=== PATIENT | male | born 1955 | race Caucasian/White ===

== ENCOUNTER → 2016-12-27 | Day surgery (SDC) | payer OTHER ==
[2016-11-23 10:54] VITALS: Ht 172.7 cm; Wt 68.2 kg
[~2016-12-27] VITALS: Ht 172.7 cm; Wt 68.2 kg
[~2016-12-27] MED LIST: 500ML BSS 0.3ML EPI 1:1000PF IRRIG ONE; ACETAMINOPHEN 325 MG TAB PO PRN; AMVISC PLUS 0.8ML SYRINGE INT OCU ONE; ATROPINE SULFATE 0.1 MG/ML 5ML SYR IV PRN; BSS FLUSH ONE; EpHEDrine SULFATE INJ 50 MG/ML AMP IV PRN; EpINEphrine INJ 1MG/ML AMP 1 MG/ML AMP ONE; IBUP-1428 PO; LIDOCAINE 3.5% OPH GEL PER APPLICATION CHARGE ONE; LIDOCAINE HCL 1% MPF 2 ML VIAL ONE; MIDAZOLAM HCL 1 MG/ML 2ML VIAL ONE; OCUCOAT 1 ML SOLN IO ONE; OMEP40CA41 PO; POVIDONE-IODINE OP SOLN 30 ML BTL ONE; PROPARACAINE 0.5% OP SOLN PER DROP CHARGE OPR SCH; TOBRAMYCIN/DEXAMETHASONE OPH OINT PER APPLN CHARGE ONE
[2016-12-27] MEDS: PHENYLEPHRINE HCL 2.5% OP SOLN PER DROP CHARGE OPR SCH ×2 (08:40→08:46)
[2016-12-27] MEDS: TROPICAMIDE 1% OP SOLN PER DROP CHARGE OPR SCH ×2 (08:42→08:47)
[2016-12-27] MEDS: CYCLOPENTOLATE HCL 1% OP SOLN PER DROP CHARGE OPR SCH ×2 (08:42→08:48)
[2016-12-27] MEDS: KETOROLAC 0.5% OP SOLN PER DROP CHARGE OPR SCH ×2 (08:44→08:50)
[2016-12-27] MEDS: GATIFLOXACIN OP SOLN PER DROP CHARGE OPR SCH ×2 (08:45→08:51)
--- NOTE | 2016-12-27 09:08 | History & Physical Bridge - SC ---
H&P Re-Evaluation Bridge Note: I have examined the patient, reviewed the History & Physical and in the interval since the performance of the History & Physical I have noted the following changes of clinical significance: Diagnosis: Right Cataract Procedure: Right Cataract Removal with Lens Implant No changes noted
--- NOTE | 2016-12-27 09:51 | [facility] Operative Report ---
Operative Report Date of Service Dec 27, 2016. Operative Report 1. PREOPERATIVE DIAGNOSIS: Cataract of the right eye. 2. POSTOPERATIVE DIAGNOSIS: Same. 3. PROCEDURE: Phacoemulsification with intraocular lens implantation of the right eye. SURGEON: Dr. Manuel Carreon. ANESTHESIA: Topical Lidocaine gel, 1% Non- Preserved intracameral Lidocaine, and monitored intravenous sedation. INDICATIONS FOR THE PROCEDURE: The patient is a 61 - year-old male with a history of cataract of the right eye causing significant visual impairment. The details of the proposed procedure were explained to the patient who asked appropriate questions and following discussion of all risks, benefits and alternatives agreed to have the procedure done. 4. OPERATION AND FINDINGS: DESCRIPTION OF PROCEDURE: After informed consent was obtained, the patient was brought to the Operating Room at the [facility]. The patient was placed in a supine position and then the right eye was prepped and draped in the usual sterile fashion for intraocular surgery. A drop of topical Lidocaine gel was placed in the operative eye. A wire lid speculum was then placed in the fornices. A corneal paracentesis was then created temporally. The Non-Preserved Lidocaine was then instilled into the anterior chamber. The anterior chamber was then pressurized with viscoelastic. A 2.0 mm clear corneal incision was then created temporally. A cystotome was inserted into the anterior chamber and used to create a tear in the anterior lens capsule. This capsular tear was then used to create a small flap and the flap was dragged in a counterclockwise direction in order to create a continuous curvilinear capsulorrhexis. Hydrodissection was accomplished with balanced salt solution. Phacoemulsification of the lens nucleus was then performed in a standard [id number]-[id number] technique. The phaco time was 19 seconds with an average power of 2 %. The remaining cortical material was removed using irrigation aspiration. The capsular bag was then filled with viscoelastic. A Bausch & Lomb MI60L +24.0 diopters lens was then loaded into the injector and injected into the capsular bag. The remaining viscoelastic was removed with the irrigation aspiration handpiece. The wound was hydrated and then checked and found to be watertight. The intraocular pressure was checked and found to be adequate. The wire lid speculum was removed and the patient's face was cleaned and dried. TobraDex ointment was placed in the inferior fornix. The patient was discharged to the Recovery Room having tolerated the procedure well. There were no complications. The patient will be seen tomorrow in the office for follow-up. I attest to the content of the Intraoperative Record and any orders documented therein. Any exceptions are noted below.
--- NOTE | 2016-12-27 09:51 | Discharge Instructions-SurgCtr ---
Discharge Instructions Date of Service Dec 27, 2016. Visit Reason for Visit: Right Cataract Discharge Discharge Diagnosis / Problem: cataract Discharge Goals Goal(s): Improve function Activity Recommendations Activity Limitations: per Instructions/Follow-up section Anesthesia . Post Anesthesia Instructions: If you have had General Anesthesia or IV Sedation: * Do not drive today. * Resume driving when surgeon permits. * Do not make important decisions or sign legal documents today. * Call surgeon for: 1. Temperature elevations greater than 101 degrees F. 2. Uncontrollable pain. 3. Excessive bleeding. 4. Persistent nausea and vomiting. 5. Medication intolerance (nausea, vomiting or rash). * For nausea and vomiting use only clear liquids such as: tea, soda, bouillon until nausea subsides, then gradually increase diet as tolerated. * If you have any concerns or questions, call your surgeon's office. If physician is unavailable and it is an emergency, call 911 or go to the nearest emergency room. . Instructions / Follow-Up Instructions / Follow-Up ACTIVITY RECOMMENDATIONS: * No strenuous lifting, jogging or running for 4 days * No swimming or yard work for 1 week. * Limited bending is permitted, such as putting on shoes. RETURN TO SCHOOL/WORK: No work until seen by physician in office. MEDICATIONS: Resume previous medications unless instructed otherwise by your surgeon. This includes eye drops for glaucoma. Zymaxid/Gatifloxacin (hay cap) - one drop every 2 hours until bedtime Nevanac/Ilevro/Prolensa/Ketorolac (dsouza cap) - one drop every 4 hours until bedtime Prednisolone/Durezol (white/pink cap, SHAKE WELL) - one drop every 2 hours until bedtime Starting tomorrow - all 3 drops every 4 hours until seen in the office Optive drops - as needed for discomfort SPECIAL CARE INSTRUCTIONS: * Wear eyeshield when sleeping, for four nights. * You may wear your own glasses or sunglasses while awake. * You may read or watch TV * You may shower and wash your face, but be gentle around the eye and pat dry. * Blurry vision and mild irritation are normal. * Call office if pain is more severe or vision becomes dark at . FOLLOW UP VISIT: Follow-up with Dr Carreon tomorrow. Diet Recommendations Home Diet: resume previous diet Procedures Procedures Performed: Right Cataract Phacoemulsification With Intraocular Lens Implant Pending Studies Studies pending at discharge: no Medical Emergencies . Who to Call and When: Medical Emergencies: If at any time you feel your situation is an emergency, please call 911 immediately. . Non-Emergent Contact Non-Emergency issues call your: Torch Straightener . . "Provider Documentation" section prepared by Manuel Carreon. .
[2016-12-27 09:56] VITALS: TEMP 36.3
--- NOTE | 2016-12-27 10:02 | Anesthesia Progress Nt - [facility] ---
Anesthesia Post Op Note Date & Time Dec 27, 2016 at 10:02 Vital Signs Pain Intensity: 0 Vital Signs Past 12 Hours Date Time Temp Pulse Resp B/P (MAP) Pulse Ox O2 Delivery O2 Flow Rate FiO2 12/27/16 09:56 36.3 58 18 123/78 (93) 95 Room Air 12/27/16 08:32 36.5 68 18 103/81 (88) 96 Room Air Notes Mental Status: alert / awake / arousable, participated in evaluation Pt Amnestic to Procedure: Yes Nausea / Vomiting: adequately controlled Pain: adequately controlled Airway Patency, RR, SpO2: stable & adequate BP & HR: stable & adequate Hydration State: stable & adequate Anesthetic Complications: no major complications apparent
[2016-12-27 10:18] VITALS: BP 134/80; PULSE 60; O2SAT 98
== END | disposition home or self-care (01) ==
LOC: X.SURG 08:20
PROVIDERS: ATTEND Ophthalmology
DX: H25.9 Unspecified age-related cataract (principal); K21.9 Gastro-esophageal reflux disease without esophagitis; N28.1 Cyst of kidney, acquired; L40.9 Psoriasis, unspecified; M51.36 Other intervertebral disc degeneration, lumbar region; F17.210 Nicotine dependence, cigarettes, uncomplicated; Z79.899 Other long term (current) drug therapy

== ENCOUNTER → 2017-01-22 | Day surgery (SDC) | payer OTHER ==
[2017-01-03 11:50] VITALS: Ht 172.7 cm; Wt 68.2 kg
[~2017-01-22] VITALS: Ht 172.7 cm; Wt 68.2 kg
[~2017-01-22] MED LIST changes: +ACETAMINOPHEN 325 MG TAB ONE; +LACTATED RINGER'S 1000ML 500 ML IV SCH; +ONDANSETRON INJ 2 MG/ML 2 ML VIAL IV PRN; +PROPARACAINE 0.5% OP SOLN PER DROP CHARGE OPL SCH; -PROPARACAINE 0.5% OP SOLN PER DROP CHARGE OPR SCH
[2017-01-22] MEDS: PHENYLEPHRINE HCL 2.5% OP SOLN PER DROP CHARGE OPL SCH ×2 (09:03→09:08)
[2017-01-22] MEDS: TROPICAMIDE 1% OP SOLN PER DROP CHARGE OPL SCH ×2 (09:04→09:09)
[2017-01-22] MEDS: CYCLOPENTOLATE HCL 1% OP SOLN PER DROP CHARGE OPL SCH ×2 (09:05→09:10)
[2017-01-22] MEDS: KETOROLAC 0.5% OP SOLN PER DROP CHARGE OPL SCH ×2 (09:06→09:11)
[2017-01-22] MEDS: GATIFLOXACIN OP SOLN PER DROP CHARGE OPL SCH ×2 (09:07→09:17)
--- NOTE | 2017-01-22 09:53 | History & Physical Bridge - SC ---
H&P Re-Evaluation Bridge Note: I have examined the patient, reviewed the History & Physical and in the interval since the performance of the History & Physical I have noted the following changes of clinical significance: Diagnosis: Left Cataract Procedure: Left Cataract Removal with Lens Implant No changes noted
--- NOTE | 2017-01-22 10:11 | History & Physical Bridge - SC ---
H&P Re-Evaluation Bridge Note: I have examined the patient, reviewed the History & Physical and in the interval since the performance of the History & Physical I have noted the following changes of clinical significance: No changes noted
--- NOTE | 2017-01-22 10:24 | Discharge Instructions-SurgCtr ---
Discharge Instructions Date of Service Jan 22, 2017. Visit Reason for Visit: Cataract Left Eye Discharge Discharge Diagnosis / Problem: cataract Discharge Goals Goal(s): Improve function Activity Recommendations Activity Limitations: per Instructions/Follow-up section Anesthesia . Post Anesthesia Instructions: If you have had General Anesthesia or IV Sedation: * Do not drive today. * Resume driving when surgeon permits. * Do not make important decisions or sign legal documents today. * Call surgeon for: 1. Temperature elevations greater than 101 degrees F. 2. Uncontrollable pain. 3. Excessive bleeding. 4. Persistent nausea and vomiting. 5. Medication intolerance (nausea, vomiting or rash). * For nausea and vomiting use only clear liquids such as: tea, soda, bouillon until nausea subsides, then gradually increase diet as tolerated. * If you have any concerns or questions, call your surgeon's office. If physician is unavailable and it is an emergency, call 911 or go to the nearest emergency room. . Diet Recommendations Home Diet: resume previous diet Procedures Procedures Performed: Left Cataract Phacoemulsification With Intraocular Lens Implant Pending Studies Studies pending at discharge: no Medical Emergencies . Who to Call and When: Medical Emergencies: If at any time you feel your situation is an emergency, please call 911 immediately. . Non-Emergent Contact Non-Emergency issues call your: Rehab/Pre Vocational Counselor . . "Provider Documentation" section prepared by Manuel Carreon. .
--- NOTE | 2017-01-22 10:24 | [facility] Operative Report ---
Operative Report Date of Service Jan 22, 2017. Operative Report 1. PREOPERATIVE DIAGNOSIS: Cataract of the left eye. 2. POSTOPERATIVE DIAGNOSIS: Same. 3. PROCEDURE: Phacoemulsification with intraocular lens implantation of the left eye. SURGEON: Dr. Manuel Carreon. ANESTHESIA: Topical Lidocaine gel, 1% Non- Preserved intracameral Lidocaine, and monitored intravenous sedation. INDICATIONS FOR THE PROCEDURE: The patient is a 61 - year-old male with a history of cataract of the left eye causing significant visual impairment. The details of the proposed procedure were explained to the patient who asked appropriate questions and following discussion of all risks, benefits and alternatives agreed to have the procedure done. 4. OPERATION AND FINDINGS: DESCRIPTION OF PROCEDURE: After informed consent was obtained, the patient was brought to the Operating Room at the [facility]. The patient was placed in a supine position and then the left eye was prepped and draped in the usual sterile fashion for intraocular surgery. A drop of topical Lidocaine gel was placed in the operative eye. A wire lid speculum was then placed in the fornices. A corneal paracentesis was then created temporally. The Non-Preserved Lidocaine was then instilled into the anterior chamber. The anterior chamber was then pressurized with viscoelastic. A 2.0 mm clear corneal incision was then created temporally. A cystotome was inserted into the anterior chamber and used to create a tear in the anterior lens capsule. This capsular tear was then used to create a small flap and the flap was dragged in a counterclockwise direction in order to create a continuous curvilinear capsulorrhexis. Hydrodissection was accomplished with balanced salt solution. Phacoemulsification of the lens nucleus was then performed in a standard [id number]-lli-fhrejsm technique. The phaco time was 16 seconds with an average power of 12 %. The remaining cortical material was removed using irrigation aspiration. The capsular bag was then filled with viscoelastic. A Bausch & Lomb MI60L +20.0 diopters lens was then loaded into the injector and injected into the capsular bag. The remaining viscoelastic was removed with the irrigation aspiration handpiece. The wound was hydrated and then checked and found to be watertight. The intraocular pressure was checked and found to be adequate. The wire lid speculum was removed and the patient's face was cleaned and dried. TobraDex ointment was placed in the inferior fornix. The patient was discharged to the Recovery Room having tolerated the procedure well. There were no complications. The patient will be seen tomorrow in the office for follow-up. I attest to the content of the Intraoperative Record and any orders documented therein. Any exceptions are noted below.
[2017-01-22 10:26] VITALS: TEMP 36.3
--- NOTE | 2017-01-22 10:55 | Anesthesia Progress Nt - [facility] ---
Anesthesia Post Op Note Date & Time Jan 22, 2017 at 10:54 Vital Signs Pain Intensity: 3 Vital Signs Past 12 Hours Date Time Temp Pulse Resp B/P (MAP) Pulse Ox O2 Delivery O2 Flow Rate FiO2 01/22/17 10:26 36.3 57 16 103/62 (76) 97 Room Air 01/22/17 08:56 36.4 60 18 116/72 (87) 96 Room Air Notes Mental Status: alert / awake / arousable, participated in evaluation Pt Amnestic to Procedure: Yes Nausea / Vomiting: adequately controlled Pain: adequately controlled Airway Patency, RR, SpO2: stable & adequate BP & HR: stable & adequate Hydration State: stable & adequate Anesthetic Complications: no major complications apparent
[2017-01-22 10:57] VITALS: BP 99/65; PULSE 61; O2SAT 97
== END | disposition home or self-care (01) ==
LOC: X.SURG 08:44
PROVIDERS: ATTEND Ophthalmology
DX: H26.9 Unspecified cataract (principal); F17.210 Nicotine dependence, cigarettes, uncomplicated; K21.9 Gastro-esophageal reflux disease without esophagitis; Z79.899 Other long term (current) drug therapy

== ENCOUNTER → 2017-07-05 | Outpatient (CLI) | payer OTHER ==
[~2017-07-05] MED LIST changes: -500ML BSS 0.3ML EPI 1:1000PF IRRIG ONE; -ACETAMINOPHEN 325 MG TAB ONE; -ACETAMINOPHEN 325 MG TAB PO PRN; -AMVISC PLUS 0.8ML SYRINGE INT OCU ONE; -ATROPINE SULFATE 0.1 MG/ML 5ML SYR IV PRN; -BSS FLUSH ONE; -EpHEDrine SULFATE INJ 50 MG/ML AMP IV PRN; -EpINEphrine INJ 1MG/ML AMP 1 MG/ML AMP ONE; -LACTATED RINGER'S 1000ML 500 ML IV SCH; -LIDOCAINE 3.5% OPH GEL PER APPLICATION CHARGE ONE; -LIDOCAINE HCL 1% MPF 2 ML VIAL ONE; -MIDAZOLAM HCL 1 MG/ML 2ML VIAL ONE; -OCUCOAT 1 ML SOLN IO ONE; -ONDANSETRON INJ 2 MG/ML 2 ML VIAL IV PRN; -POVIDONE-IODINE OP SOLN 30 ML BTL ONE; -PROPARACAINE 0.5% OP SOLN PER DROP CHARGE OPL SCH; -TOBRAMYCIN/DEXAMETHASONE OPH OINT PER APPLN CHARGE ONE; +TRAM-10 PO
--- NOTE | 2017-07-05 17:53 | DIAGNOSTIC IMAGING REPORT ---
LUMBAR SPINE W/O CONTRAST CLINICAL HISTORY: 61 years-old Male presenting with LUMBAR SPINE PAIN. TECHNIQUE: Multisequence, multiplanar MR imaging of the lumbar spine was performed without the use of intravenous contrast. IV contrast: None. COMPARISON: 11/10/2015. FINDINGS: Localizer images: Posterior lumbar fusion hardware at L4-5. Posterior bilateral transpedicular screw and leonie fixation of L4-5 with interbody spacer. Laminectomy defects at these levels. Regional susceptibility artifact somewhat limits evaluation. Adequate posterior decompression. No evidence of bony edema at the operative levels. Interval removal of the S1 transpedicular posterior fixation hardware. Interbody spacer also noted at L5-S1 with osseous fusion across these levels. Nonspecific T2 hyperintensity in the operative bed likely granulation tissue or mild edema. Normal lumbar lordosis. Nonoperative vertebral body levels demonstrate normal height, alignment, and bone marrow signal intensity. Diffuse intervertebral disc desiccation with slight height loss at L3-4. Additional multilevel degenerative changes further detailed below: L1-2: No significant spinal canal or neural foraminal narrowing. L2-3: Facet arthropathy results in mild bilateral neural foraminal narrowing. No significant spinal canal narrowing. Anterior osteophytosis also evident. L3-4: Disc bulge and prominent anterior osteophytosis. There may also be a focal disc extrusion with cranial migration effacing the superior aspect of the right lateral recess (series 11 image 14). This was not present on prior exam. In combination with more severe facet arthropathy, severe right and moderate left neural foraminal narrowing is evident. Mass effect on the exiting right L3 nerve root. These degenerative changes have significantly progressed since the prior exam. No significant spinal canal stenosis. L4-5: No spinal canal stenosis. No gross evidence of neural foraminal narrowing allowing for susceptibility artifact. L5-S1: No spinal canal stenosis. No gross evidence of neural foraminal narrowing allowing for susceptibility artifact. Spinal cord is in good position at the L1-2 level and cauda equina normal in morphology. Postsurgical changes of the paraspinal soft tissues as mentioned above. No focal fluid collection is evident. Exophytic T2 hypointense lesion arising from the left kidney is indeterminate but may represent a hemorrhagic cyst based markedly T2 hypointense rim on STIR (series 9 image 15). IMPRESSION: 1. Postsurgical changes of posterior L4-5 fusion with interbody spacer. 2. Interval removal of the S1 posterior fusion hardware though the interbody spacer at L5-S1 remains. Osseous fusion across L5-S1. 3. Significant interval development of adjacent level degenerative change at L3-4 with severe right and moderate left neural foraminal narrowing secondary to disc bulge and facet arthropathy. 4. Possible disc extrusion at the L3-4 level with cranial migration. This effaces the superior aspect of the right lateral recess without significant impact on the exiting right L3 nerve root as the right neural foramen is already severely narrowed. 5. No significant spinal canal stenosis. 6. Exophytic T2 hypointense lesion arising from the left kidney is indeterminate but may represent a hemorrhagic cyst. Electronically signed by: Kranthi Shine M.D. 07/05/2017 5:52 PM Dictated Date/Time: 07/05/2017 5:42 PM
== END | disposition home or self-care (01) ==
LOC: C.MRI 16:21
PROVIDERS: ATTEND Orthopaedic Surgery Orthopaedic Surgery of the Spine
DX: M47.816 Spondylosis without myelopathy or radiculopathy, lumbar region (principal); M51.26 Other intervertebral disc displacement, lumbar region; M46.96 Unspecified inflammatory spondylopathy, lumbar region; Z98.1 Arthrodesis status

== ENCOUNTER 2017-07-18 06:22 | Inpatient (IN) | payer OTHER ==
--- NOTE | 2017-07-10 11:57 | DIAGNOSTIC IMAGING REPORT ---
CHEST 2 VIEWS ROUTINE CLINICAL HISTORY: 61 years-old Male presenting with PREOP. TECHNIQUE: PA and lateral views of the chest were obtained. COMPARISON: 11/25/2015. FINDINGS: Atherosclerosis of the aortic arch. Cardiac silhouette normal in size. Lungs and pleural spaces clear. Osseous structures normal. Upper abdomen normal. IMPRESSION: 1. No acute cardiopulmonary disease. Electronically signed by: Kranthi Shine M.D. 07/10/2017 11:56 AM Dictated Date/Time: 07/10/2017 11:55 AM
[2017-07-10 12:33] LABS: BASO % 0.5 %; BASO ABS # 0.04 K/uL (0-0.2); EOS % 2.7 %; EOS ABS # 0.23 K/uL (0-0.5); HEMATOCRIT 39.6 % (42-52); HEMOGLOBIN 13.7 g/dL (14.0-18.0); IG# 0.01 K/uL (0.00-0.02); LYMPH % 42.3 %; LYMPH ABS # 3.54 K/uL (1.2-3.4); MEAN CELL VOLUME 91.9 fL (80-100); MEAN CORPUSCULAR HEMOGLOBIN 31.8 pg (25-34); MEAN CORPUSCULAR HGB CONC 34.6 g/dl (32-36); MEAN PLATELET VOLUME 9.5 fL (7.4-10.4); MONO % 10.8 %; NEUT % 43.6 %; NEUT ABS # 3.65 K/uL (1.4-6.5); PLATELET COUNT 248 K/uL (130-400); RED CELL DISTRIBUTION WIDTH CV 12.7 % (11.5-14.5); WHITE BLOOD COUNT 8.37 K/uL (4.8-10.8)
[2017-07-10 13:02] LABS: BLOOD UREA NITROGEN 19 mg/dl (7-18); CALCIUM 9.2 mg/dl (8.5-10.1); CARBON DIOXIDE 29 mmol/L (21-32); CREATININE 0.94 mg/dl (0.60-1.40); GLUCOSE 71 mg/dl (70-99); POTASSIUM 4.1 mmol/L (3.5-5.1); SODIUM 136 mmol/L (136-145)
[~2017-07-18] VITALS: Ht 175.3 cm; Wt 63.6 kg
[2017-07-18] VITALS (10 sets, daily range): BP systolic 109–145; BP diastolic 61–76; PULSE 57–74; TEMP 36.2–36.8; O2SAT 96–100; Ht 175.3 cm; Wt 63.6 kg
[~2017-07-18 06:22] MED LIST changes: +ACETAMINOPHEN 500 MG TAB PO SCH; +CEFAZOLIN 1000MG IV PUSH 7.5 ML IV SCH; +CYCLOPENTOLATE HCL 1% OP SOLN PER DROP CHARGE OPL SCH; +CeleBREX 200 MG CAP PO SCH; +GABAPENTIN 300 MG CAP PO SCH; +KETOROLAC 0.5% OP SOLN PER DROP CHARGE OPL SCH; +LACTATED RINGER'S 1000ML 1,000 ML IV SCH; +LACTATED RINGER'S 1000ML 500 ML IV SCH; +LIDOCAINE 4% OP SOLN DROP CHARGE OPL SCH; +MOXIFLOXACIN OPH SOLN PER DROP CHARGE OPL SCH; +PHENYLEPHRINE HCL 2.5% OP SOLN PER DROP CHARGE OPL SCH; +PROPARACAINE 0.5% OP SOLN PER DROP CHARGE OPL SCH; +TROPICAMIDE 1% OP SOLN PER DROP CHARGE OPL SCH
--- NOTE | 2017-07-18 07:18 | History and Physical ---
History & Physical Date Jul 18, 2017. Chief Complaint Back and leg pain History of Present Illness The patient is a 61 year old male with complaints of back and leg pain Past Medical/Surgical History Medical Problems: (1) Gastric ulcer (2) Laminectomy (3) Lumbar stenosis with neurogenic claudication Additional History Hepatic Disease: No Endocrine Disorder: No Kidney Disease: No Hypertension: No Heart Disease: No Bleeding Tendencies: No Infectious Diseases: No Allergies Coded Allergies: No Known Allergies (Verified , 07/12/17) Home Medications Scheduled Omeprazole (Prilosec), 40 MG PO QAM Scheduled PRN Ibuprofen (Motrin), 800 MG PO DIRECTED PRN for Pain Tramadol (Ultram), 50 MG PO TID PRN for Pain Physical Examination Skin: warm/dry, no rash Eyes: normal inspection, EOMI, sclerae normal ENT: normal ENT inspection, pharynx normal Head: normocephalic, atraumatic Neck: supple, no adenopathy, trachea midline Respiratory/Chest: lungs clear, normal breath sounds, no respiratory distress Cardiovascular: regular rate, rhythm, no edema, no murmur Abdomen / GI: normal bowel sounds, non tender Back: normal inspection Extremities: normal inspection, normal range of motion Neurologic/Psych: no motor/sensory deficits, alert, normal reflexes, oriented x 3 Diagnosis Lumbar spinal stenosis Plan of Treatment Removal of hardware L4-5, decompression and fusion L3-4
[2017-07-18] MEDS ORDERED: MIDAZOLAM HCL 1 MG/ML 2ML VIAL ONE (07:38)
[2017-07-18] MEDS ORDERED: FENTANYL CITRATE INJ 50 MCG/1 ML 2 ML VIAL ONE ×3 (07:38→08:32)
[2017-07-18] MEDS ORDERED: BUPIVACAINE/EPINEPHRINE 0.5% MPF 1:200,000 30 ML VIAL ONE (07:51)
[2017-07-18] MEDS ORDERED: BACITRACIN 50000 UNIT VIAL ONE (07:51)
[2017-07-18] MEDS ORDERED: FENTANYL CITRATE INJ 50 MCG/1 ML 2 ML VIAL IV PRN (08:30)
[2017-07-18] MEDS ORDERED: ONDANSETRON INJ 2 MG/ML 2 ML VIAL IV PRN ×2 (08:30→10:15)
[2017-07-18] MEDS ORDERED: EpHEDrine SULFATE INJ 50 MG/ML AMP IV PRN (08:30)
[2017-07-18] MEDS ORDERED: MoRPHine SULFATE 10 MG/ML CARP/VIAL IV PRN (08:30)
[2017-07-18] MEDS ORDERED: ATROPINE SULFATE 0.1 MG/ML 5ML SYR IV PRN (08:30)
[2017-07-18] MEDS ORDERED: HYDROmorphone INJ 2 MG/ML SYR/VIAL ONE ×2 (08:33→10:05)
[2017-07-18] MEDS ORDERED: LIDOCAINE HCL 2% 2 ML VIAL (20MG/ML) ONE (09:04)
[2017-07-18] MEDS ORDERED: DEXAMETHASONE SOD INJ 4 MG/ML VIAL ONE (09:04)
[2017-07-18] MEDS ORDERED: EpHEDrine SULFATE 50MG/5ML SYR ONE ×2 (09:04→10:07)
[2017-07-18] MEDS ORDERED: PROPOFOL IV EMULSION 10 MG/ML 20 ML VIAL IV ONE (09:04)
[2017-07-18] MEDS ORDERED: ESMOLOL HCL 10 MG/ML 10 ML VIAL ONE ×2 (09:04→10:09)
[2017-07-18] MEDS ORDERED: FLOSEAL HEMOSTATIC MATRIX 10ML TOP ONE (09:54)
[2017-07-18] MEDS ORDERED: SODIUM CHLORIDE 0.9% 1000ML 1,000 ML IV SCH (10:02)
--- NOTE | 2017-07-18 10:02 | [facility] Operative Report ---
Operative Report Operative Date Jul 18, 2017. Pre-Operative Diagnosis Lumbar spinal stenosis Post-Operative Diagnosis Same Procedure(s) Performed 1. Removal of posterior instrumentation L4-5. #2 exploration of fusion L4-5. #3 decompression medial facetectomies foraminotomies L2-3 L3-4. #4 posterior spinal fusion L3-4. #5 placement of posterior instrumentation L3-4. #6 interbody fusion L3-4. #7 placement peek cage 12 x 22 mm L3-4. #8 placement of locally harvested morselized' autograft t in the posterior lateral gutters. #9 placement of infuse collagen sponge combined with master graft in the posterior lateral gutters and ostium bone graft in the interbody space. Surgeon Dr. Blue [place] [employer]rier Surgeon(s) Emma Clark PA-C Estimated Blood Loss 200 Findings Severe spinal stenosis with herniated nucleus pulposus Description of Procedure Patient was met with preoperatively case discussed all questions addressed. After informed consent obtained patient was taken to the operative suite underwent intubation and placed in a prone position on the Kevin table on top of the Timothy frame. All bony prominences were well-padded eyes inspected to ensure no external pressure placed upon them. This point the lumbar spine was prepped and draped in normal sterile fashion. Sharp dissection with the assistance of Bovie cautery was performed down to and exposing the lamina and transverse processes of L3 and instrumentation at L4-5 bilaterally. And then proceeded with the hardware bilaterally at 4 5. Explore the fusion mass noting it to be intact. Then performed complete laminectomy of L3 partial laminectomy of L2 addressing severe lateral recess and foraminal stenosis. As well as a massive foraminal disc herniation on the right. After this was decompressed pedicle screws were placed in L3 and L4 bilaterally with the assistance of fluoroscopy in a properly sized leonie placed. Through a transforaminal approach on the right complete discectomy of L3-4 was performed endplates created to subcortical bleeding bone and a 12 x 22 mm peek cage for the ostium bone graft tapped in position. The rods were then compressed locked into final position bilaterally. The transverse processes of L3 and L4 burred to subcortical bleeding bone. Infuse collagen sponge master graft and locally harvested Gloria' s Artegraft was placed in the posterior lateral gutters. A 15 round RANDI drain inserted. Incision was then closed with 1 Vicryl fascia 2-0 Vicryl subcutaneous 3 4-0 Monocryl for fast closure Steri-Strips sterile dressings placed. Patient will continue to PACU stable condition. Please note Emma Gardner was present throughout the entire procedure involved in patient positioning complex portions of the surgery and fashion closure. I attest to the content of the Intraoperative Record and any orders documented therein. Any exceptions are noted below.
[2017-07-18] MEDS ORDERED: ONDANSETRON INJ 2 MG/ML 2 ML VIAL ONE (10:06)
[2017-07-18] MEDS ORDERED: NEOSTIGMINE METHYLSULFATE 1 MG/ML 10ML VIAL ONE (10:06)
[2017-07-18] MEDS ORDERED: GLYCOPYRROLATE INJ 0.2 MG/ML VIAL ONE (10:06)
[2017-07-18] MEDS ORDERED: KETOROLAC TROMETHAMINE 30 MG/ML VIAL ONE (10:07)
[2017-07-18] MEDS ORDERED: ROCURONIUM BROMIDE 10 MG/ML 5 ML VIAL IV ONE (10:09)
--- NOTE | 2017-07-18 10:13 | DIAGNOSTIC IMAGING REPORT ---
LUMBAR SPINE, INTRAOPERATIVE FLUOROSCOPY HISTORY: L4-L5 hardware removal. L3-L4 decompression and fusion.. FLUOROSCOPY TIME: 7 seconds.. FINDINGS: Intraoperative fluoroscopy was provided for the lumbar spine. 3 fluoroscopic spot images were obtained. Interval removal of the L4-L5 pedicle screws and rods. Interval posterior decompression fusion at L3-L4 with pedicle screws and rods. The hardware appears intact. Disc spacers at L3-L4, L4-L5, and L5-S1 are noted. IMPRESSION: Fluoroscopy provided for a posterior decompression and fusion at L3-L4. Electronically signed by: Omid Banuelos M.D. 07/18/2017 10:12 AM Dictated Date/Time: 07/18/2017 10:11 AM
[2017-07-18] MEDS ORDERED: PROMETHAZINE HCL INJ 12.5 MG in SODIUM CHLORIDE 0.9% 50ML 50 ML IV PRN (10:15)
[2017-07-18] MEDS ORDERED: NALOXONE HCL 0.4 MG/1 ML VIAL/CARP IV PRN ×2 (10:15)
[2017-07-18] MEDS ORDERED: DO NOT ADMINISTER FLU VACCINE PRN (10:15)
[2017-07-18] MEDS ORDERED: ACETAMINOPHEN 500 MG TAB PO PRN (10:15)
[2017-07-18] MEDS ORDERED: SOD PHOSPHATE/SOD BIPHOSPHATE ENEMA 132 ML BTL PR PRN (10:15)
[2017-07-18] MEDS ORDERED: hydrOXYzine HCL 25 MG TAB PO PRN (10:15)
[2017-07-18] MEDS ORDERED: BISACODYL 10 MG SUPP PR PRN (10:15)
[2017-07-18] MEDS ORDERED: LORAZEPAM INJ 0.5 MG in SYRINGE 0 ML IV PRN (10:15)
[2017-07-18] MEDS ORDERED: DO NOT ADMINISTER PNEUMOCOCCAL VACCINE PRN (10:15)
[2017-07-18] MEDS ORDERED: FAMOTIDINE 20 MG TAB PO PRN (10:15)
[2017-07-18] MEDS ORDERED: MAGNESIUM HYDROXIDE SUSP 30 ML UDC PO PRN (10:15)
[2017-07-18] MEDS ORDERED: ALUMINUM/MAGNESIUM SUSP 30 ML UDC PO PRN (10:15)
[2017-07-18] MEDS ORDERED: ACETAMINOPHEN IV 100 ML IV PRN (10:15)
[2017-07-18] MEDS ORDERED: METOCLOPRAMIDE HCL INJ 5 MG/ML 2 ML VIAL IV PRN (10:15)
[2017-07-18] MEDS ORDERED: LORAZEPAM 0.5 MG TAB PO PRN (10:15)
[2017-07-18] MEDS ORDERED: HYDROmorphone HCL 0.5MG/ML 50 ML CASSETTE ONE (10:21)
--- NOTE | 2017-07-18 11:15 | Anesthesiology Progress Note ---
Anesthesia Post Op Note Date & Time Jul 18, 2017 at 11:15 Vital Signs Pain Intensity: 4 Vital Signs Past 12 Hours Date Time Temp Pulse Resp B/P (MAP) Pulse Ox O2 Delivery O2 Flow Rate FiO2 07/18/17 11:05 36.3 57 18 119/66 100 Nasal Cannula 4 07/18/17 10:55 36.3 63 18 131/74 100 Nasal Cannula 4 07/18/17 10:45 60 16 122/69 100 Nasal Cannula 4 07/18/17 10:35 72 18 122/71 100 Oxymask 10 07/18/17 10:25 36.3 70 16 124/74 100 Oxymask 10 07/18/17 10:19 36.3 67 16 129/76 99 Oxymask 10 07/18/17 07:10 36.8 67 18 123/71 96 Room Air Notes Mental Status: alert / awake / arousable, participated in evaluation Pt Amnestic to Procedure: Yes Nausea / Vomiting: adequately controlled Pain: adequately controlled Airway Patency, RR, SpO2: stable & adequate BP & HR: stable & adequate Hydration State: stable & adequate Anesthetic Complications: no major complications apparent
[2017-07-18] MEDS ORDERED: RXC5 PO (15:26)
[2017-07-18] MEDS: HYDROmorphone HCL 0.5MG/ML 50 ML CASSETTE IV PRN ×2 (15:27→18:55)
--- NOTE | 2017-07-18 15:27 | Discharge Instructions ---
Discharge Instructions Date of Service Jul 18, 2017. Admission Reason for Admission: Lumbar Spinal Stenosis Discharge Discharge Diagnosis / Problem: lumbar stenosis Discharge Goals Goal(s): Improve function Activity Recommendations Activity Limitations: per Instructions/Follow-up section . Instructions / Follow-Up Instructions / Follow-Up ACTIVITY RECOMMENDATIONS: SELF CARE INSTRUCTIONS AFTER THORACIC/LUMBAR FUSIONS 1. You may walk to your tolerance. It is good exercise for your legs and back. Expect some back and intermittent leg aches and pains. 2. You may perform "counter-top" level activities (make a sandwich, rodolfo with a project, etc.). 3. No bending or lifting of more than 10 pounds or back twisting of any nature (roll like a log when turning in bed). 4. You may ride in a car for 20-30 minutes at a time. No driving until after your first visit with your doctor. 5. Frequent changes of position and restricting sitting to 30 minutes at a time will help limit the amount of back spasms and stiffness you may experience. 6. You may discontinue the use of ambulatory aids (cane, crutches, etc.) once your strength and confidence allow. 7. You may superintendent [employer] the shower and let water strike your incision when you arrive home at least once daily. Do not take a tub bath, sit in a hot tub or go into a swimming pool until after your first recheck in the office. SPECIAL CARE INSTRUCTIONS: VERY IMPORTANT TO READ AND REVIEW A. Your surgical incision has been closed with a cosmetic suture under the skin that will dissolve in about 6 weeks. In 14 days, you can use a pair of clean scissors and cut the suture that is left outside of the skin at the ends of your incision. 1. The small skin tapes can be removed 7 days after surgery if they have not fallen off by that point. 2. You may keep the wound open to air as much as possible to promote healing after post-op day number 5 unless told otherwise by your doctor. 3. If you think the wound looks like it is becoming infected (redness or worsening drainage) and/or you are experiencing fever, chill or worsening back pain and muscle spasms, contact the office so that we may evaluate you as soon as possible. B. Complications are uncommon, but please contact us if you have any signs or symptoms of: 1. wound infection (fever higher than 102.5 degrees F, redness, separation of wound, drainage, or increasing pain from the incision) 2. blood clots in legs (pain, swelling, redness and warmth in legs) 3. urinary tract infection (fever higher than 102.5 degrees F, burning upon urination or increased frequency of urination) 4. nerve problems (inability to walk on your toes or heels, numbness, loss of bowel or bladder control) 5. any other symptoms that concern you C. Please call the office at if you have any concerns or questions about your operation or recovery. D. No smoking! Smoking drastically decreases the chance of a solid fusion. E. Do not take any anti-inflammatory medications (Indocin, Advil, Motrin, Aspirin, Naprosyn, etc.) as these may inhibit the chance of a solid fusion. Tylenol is okay to take for pain. MANAGING PAIN AFTER SPINAL SURGERY 1. Narcotic medication is intended for short-term use and will be provided for surgical pain. Surgical pain usually lasts for a period of 4-6 weeks. Narcotic medication includes Percocet, Vicodin, Darvocet, Tylenol #3 or Lortab. 2. Longer-term pain is more appropriately treated with non-narcotic medication such as Tylenol ES. 3. Muscle spasm is not appropriately treated with narcotics. Muscle relaxers such as Soma, Flexeril or Skelaxin can be used along with Tylenol ES. 4. Remember that we all live with some "aches and pains". This is not unusual or uncommon after an injury or as we get older. a. Back pain is expected and may include muscle spasms for 4 to 6 weeks after surgery. The pain should gradually improve. If the pain worsens for no apparent reason, please contact the office. b. Intermittent leg pain may also be experienced and should not be concerned about unless it worsens for no apparent reason. If so, please contact the office. 5. We will provide appropriate medication within the normal guidelines of their prescribed use. We will also be very cautious and aware of potential abuse and extended duration of patients' medication needs. a. Pain medications are for your comfort and to assist with sleep and rest so that the tissue can heal. They are not provided in order to return to normal activity and should not be used through the day. To do so or worsening pain at night can result from ongoing tissue damage and development of tolerance to the prescribed medicine. 6. Please allow 2-3 days to process refills. Prescriptions will not be mailed but must be picked up at the office. FOLLOW UP VISIT: Keep your scheduled follow-up appointment. Any questions, please call the office at . Current Hospital Diet Patient's current hospital diet: Regular Diet Discharge Diet Recommended Diet: Regular Diet Procedures Procedures Performed: 1. Removal of posterior instrumentation L4-5. #2 exploration of fusion L4-5. #3 decompression medial facetectomies foraminotomies L2-3 L3-4. #4 posterior spinal fusion L3-4. #5 placement of posterior instrumentation L3-4. #6 interbody fusion L3-4. #7 placement peek cage 12 x 22 mm L3-4. #8 placement of locally harvested morselized' autograft t in the posterior lateral gutters. #9 placement of infuse collagen sponge combined with master graft in the posterior lateral gutters and ostium bone graft in the interbody space. Pending Studies Studies pending at discharge: no Medical Emergencies . Who to Call and When: Medical Emergencies: If at any time you feel your situation is an emergency, please call 911 immediately. . Non-Emergent Contact Non-Emergency issues call your: Primary Care Provider . "Provider Documentation" section prepared by Javed Blue. .
[2017-07-18] MEDS: SODIUM CHLORIDE 0.9% 1000ML 1,000 ML IV SCH ×2 (15:28→20:37)
[2017-07-18] MEDS: CEFAZOLIN IV 1,000 MG in SYRINGE 0 ML IV SCH ×2 (15:59→23:09)
[2017-07-18] MEDS ORDERED: CEFAZOLIN IV 1,000 MG in DEXTROSE 5% 50ML 50 ML IV SCH (16:00)
[2017-07-18] MEDS ORDERED: NURSING VERBAL MED ORDER ONE (18:45)
[2017-07-18] MEDS ORDERED: NICOTINE 21 MG/24 HR TDSY EXT ONE (19:15)
[2017-07-18] MEDS: DOCUSATE SODIUM/SENNA 50/8.6MG TAB PO SCH (20:37)
[2017-07-19] MEDS: SODIUM CHLORIDE 0.9% 1000ML 1,000 ML IV SCH (03:13)
[2017-07-19 03:59] VITALS: BP 108/66; PULSE 69; TEMP 36.5; O2SAT 97
[2017-07-19] MEDS ORDERED: NURSING DECISION MEDICATION ORDER SCH (05:30)
[2017-07-19] MEDS ORDERED: HYDROmorphone INJ 2 MG/ML SYR/VIAL IV PRN ×2 (06:00)
[2017-07-19] MEDS ORDERED: TRAMADOL HCL 50 MG TAB PO PRN (06:00)
[2017-07-19] MEDS ORDERED: DC PCA SCH (06:00)
[2017-07-19] MEDS ORDERED: HYDROmorphone INJ 0.5 MG/0.5 ML SYR IV PRN (06:00)
[2017-07-19 06:29] LABS: BASO % 0.1 %; BASO ABS # 0.01 K/uL (0-0.2); EOS % 0.2 %; EOS ABS # 0.03 K/uL (0-0.5); HEMATOCRIT 30.4 % (42-52); HEMOGLOBIN 10.5 g/dL (14.0-18.0); IG# 0.04 K/uL (0.00-0.02); LYMPH % 18.4 %; LYMPH ABS # 2.59 K/uL (1.2-3.4); MEAN CORPUSCULAR HEMOGLOBIN 32.1 pg (25-34); MEAN CORPUSCULAR HGB CONC 34.5 g/dl (32-36); MONO % 9.8 %; MONO ABS # 1.38 K/uL (0.11-0.59); NEUT % 71.2 %; NEUT ABS # 10.01 K/uL (1.4-6.5); PLATELET COUNT 204 K/uL (130-400); RED CELL DISTRIBUTION WIDTH CV 13.1 % (11.5-14.5); RED CELL DISTRIBUTION WIDTH SD 44.5 fL (36.4-46.3); WHITE BLOOD COUNT 14.06 K/uL (4.8-10.8)
[2017-07-19 07:04] LABS: CALCIUM 8.2 mg/dl (8.5-10.1); CREATININE 1.04 mg/dl (0.60-1.40)
[2017-07-19 07:20] VITALS: O2SAT 99
[2017-07-19 07:25] VITALS: BP 112/64; PULSE 72; TEMP 36.7; O2SAT 99
--- NOTE | 2017-07-19 08:12 | Anesthesiology Progress Note ---
Anesthesia Post Op Note Date & Time Jul 19, 2017 at 08:12 Vital Signs Pain Intensity: 2.0 Vital Signs Past 12 Hours Date Time Temp Pulse Resp B/P (MAP) Pulse Ox O2 Delivery O2 Flow Rate FiO2 07/19/17 07:25 36.7 72 16 112/64 (80) 99 Room Air 07/19/17 03:59 36.5 69 16 108/66 (80) 97 Room Air 07/18/17 23:30 36.4 64 16 120/70 (87) 96 Room Air Notes Mental Status: alert / awake / arousable, participated in evaluation Pt Amnestic to Procedure: Yes Nausea / Vomiting: adequately controlled Pain: adequately controlled Airway Patency, RR, SpO2: stable & adequate BP & HR: stable & adequate Hydration State: stable & adequate Anesthetic Complications: no major complications apparent
[2017-07-19] MEDS: NICOTINE 21 MG/24 HR TDSY EXT SCH (08:43)
[2017-07-19] MEDS: PANTOprazole SOD 40 MG TAB PO SCH (08:43)
[2017-07-19] MEDS ORDERED: KETOROLAC TROMETHAMINE 30 MG/ML VIAL IV PRN (10:30)
[2017-07-19] MEDS: OXYCODONE HCL IR 5 MG TAB (IMMEDIATE RELEASE) PO PRN ×2 (11:35→19:38)
[2017-07-19 12:15] VITALS: BP 109/62; PULSE 73; TEMP 36.3; O2SAT 97
--- NOTE | 2017-07-19 13:19 | Progress Note ---
Progress Note Date of Service Jul 19, 2017. Progress Note Patient's leg symptoms are markedly improved. Back pain is controlled. Vital signs are stable. On exam he is in a chair at the bedside has good strength testing appears comfortable. Assessment status post lumbar decompression fusion per plan at this time will continue physical therapy anticipate discharge home this weekend.
[2017-07-19 15:01] VITALS: BP 104/56; PULSE 88; TEMP 36.5; O2SAT 96
[2017-07-19] MEDS: DOCUSATE SODIUM/SENNA 50/8.6MG TAB PO SCH (20:54)
[2017-07-19 23:08] VITALS: BP 104/64; PULSE 75; TEMP 36.6; O2SAT 95
[2017-07-20] MEDS: OXYCODONE HCL IR 5 MG TAB (IMMEDIATE RELEASE) PO PRN (01:59)
[2017-07-20] MEDS ORDERED: POLYETHYLENE (MIRALAX) 17 GM PACK PO SCH (06:00)
[2017-07-20 07:20] VITALS: BP 113/69; PULSE 76; TEMP 36.5; O2SAT 94
[2017-07-20] MEDS: NICOTINE 21 MG/24 HR TDSY EXT SCH (08:53)
[2017-07-20] MEDS: PANTOprazole SOD 40 MG TAB PO SCH (08:54)
[2017-07-20 10:18] VITALS: BP 113/69; PULSE 76; TEMP 36.5; O2SAT 94
--- NOTE | 2017-07-20 10:23 | Discharge Summary ---
Orthopedic Discharge Summary Admission Date/Reason Jul 18, 2017 at 07:55 Lumbar Spinal Stenosis. Discharge Date/Disposition Jul 20, 2017 Home Diagnosis Principal Diagnosis: Lumbar spinal stenosis Admission Physical Exam As per Admitting History & Physical. Hospital Course Patient underwent lumbar decompression fusion tolerated as well as taken to the orthopedic floor possibly. Postop day #1 he was up and amatory progressed the postop day #2. Leg symptoms markedly improved. Back pain controlled. Subsequently discharged home. Discharge orders and instructions found in the chart for further review. Discharge Instructions Please refer to the electronic Patient Visit Report (Discharge Instructions) for additional information.
== END 2017-07-20 12:22 | disposition home or self-care (01) | DRG 455 ==
LOC: C.ACU 06:22 → C.3E 07:55 → ENRESERV 10:42
PROVIDERS: ADMIT Orthopaedic Surgery Orthopaedic Surgery of the Spine; ATTEND Orthopaedic Surgery Orthopaedic Surgery of the Spine
PROC: 0SG00AJ Fusion of Lumbar Vertebral Joint with Interbody Fusion Device, Posterior Approach, Anterior Column, Open Approach (ICD-10-PCS; principal; 2017-07-18 08:15)
PROC: 0SP004Z Removal of Internal Fixation Device from Lumbar Vertebral Joint, Open Approach (ICD-10-PCS; principal; 2017-07-18 08:15)
PROC: 0ST20ZZ Resection of Lumbar Vertebral Disc, Open Approach (ICD-10-PCS; principal; 2017-07-18 08:15)
PROC: 0SG0071 Fusion of Lumbar Vertebral Joint with Autologous Tissue Substitute, Posterior Approach, Posterior Column, Open Approach (ICD-10-PCS; principal; 2017-07-18 08:15)
DX: M48.061 Spinal stenosis, lumbar region without neurogenic claudication (principal); M51.26 Other intervertebral disc displacement, lumbar region; Z79.899 Other long term (current) drug therapy

== ENCOUNTER 2017-08-20 13:21 | Emergency (ER) | payer OTHER ==
[~2017-08-20] VITALS: Ht 175.3 cm; Wt 70.9 kg
[~2017-08-20 13:21] MED LIST changes: -ACETAMINOPHEN 500 MG TAB PO SCH; -CEFAZOLIN 1000MG IV PUSH 7.5 ML IV SCH; -CYCLOPENTOLATE HCL 1% OP SOLN PER DROP CHARGE OPL SCH; -CeleBREX 200 MG CAP PO SCH; -GABAPENTIN 300 MG CAP PO SCH; -IBUP-1428 PO; -KETOROLAC 0.5% OP SOLN PER DROP CHARGE OPL SCH; -LACTATED RINGER'S 1000ML 1,000 ML IV SCH; -LACTATED RINGER'S 1000ML 500 ML IV SCH; -LIDOCAINE 4% OP SOLN DROP CHARGE OPL SCH; -MOXIFLOXACIN OPH SOLN PER DROP CHARGE OPL SCH; -PHENYLEPHRINE HCL 2.5% OP SOLN PER DROP CHARGE OPL SCH; -PROPARACAINE 0.5% OP SOLN PER DROP CHARGE OPL SCH; +RXC5 PO; -TROPICAMIDE 1% OP SOLN PER DROP CHARGE OPL SCH
[2017-08-20 13:28] VITALS: TEMP 36.8; Ht 175.3 cm; Wt 70.9 kg
[2017-08-20] MEDS ORDERED: DOXY-300 PO (13:46)
--- NOTE | 2017-08-20 13:47 | EMERGENCY ROOM VISIT NOTE ---
History First contact with patient: 13:30 Chief Complaint: BITE Stated Complaint: TICK IN SIDE History of Present Illness The patient is a 61 year old male who presents to the Emergency Room via private vehicle with complaints of "tick inside". The patient states that he noticed a tick in the left flank region just a few hours prior to arrival here today. He is unsure how long it was in place and notes that it was quite engorged. He states that his attempted to remove this but it kept breaking off. There is still some retained pieces he notes. Tetanus is up-to- date. Review of Systems A complete 6-point Review of Systems was discussed with the patient, with pertinent positives and negatives listed in the History of Present Illness. All remaining Review of Systems questions can be considered negative unless otherwise specified. Past Medical/Surgical History Medical Problems: (1) Gastric ulcer (2) Laminectomy (3) Lumbar stenosis with neurogenic claudication Social History Smoking Status: Current Every Day Smoker Alcohol Use: occasionally Marital Status: single Occupation Status: unemployed Current/Historical Medications Scheduled Doxycycline (Monohydrate) (Doxycycline), 100 MG PO BID Omeprazole (Prilosec), 40 MG PO QAM Scheduled PRN Oxycodone HCl (Oxycodone HCl), 5-10 MG PO Q4H PRN for Moderate - severe pain Tramadol (Ultram), 50 MG PO TID PRN for Pain Physical Exam Vital Signs Date Time Temp Pulse Resp B/P (MAP) Pulse Ox O2 Delivery O2 Flow Rate FiO2 08/20/17 13:59 71 18 132/83 97 08/20/17 13:28 36.8 71 18 132/83 97 Room Air Physical Exam VITAL SIGNS - Vital signs and nursing notes were reviewed. Stable. GENERAL -61-year-old male appearing his stated age who is in no acute distress. Communicates well with provider and answers questions appropriately. SKIN -on the patient's left flank there is evidence of retained tick that is not moving, as well as a subcentimeter dark erythematous chenega surrounded by a larger >1 cm erythematous region. Medical Decision & Procedures Medical Decision Patient was seen and evaluated as above in room D2. Review was performed of nursing notes and vital signs. After obtaining a thorough history and physical examination it was evident the patient was experiencing retained pieces of a tick. After obtaining consent this was easily removed with a small 18-gauge needle and forceps. No integument was disrupted. It was cleansed with an alcohol prep pad and dressed with a bacitracin dressing. Secondary to not knowing how long this was in place, as well as the amount of erythema around the region which could either be from ambulation prior to arrival or the tick itself I will treat with doxycycline 21 days over concern he is developing erythema migrans. He is to follow with the family doctor. He is to return with worsening. He was also seen by the attending physician. The patient was educated upon management, had questions answered prior to discharge, and was discharged home in good condition. Case was discussed with the attending physician. I attest that I have personally reviewed the patient medication list. I attest that I have reviewed the patient's blood pressure and it was found to be slightly elevated likely secondary to situation. In the evaluation and treatment of this patient the following differential diagnoses were entertained: Erythema migrans, tick bite, cellulitis, among others. Impression Primary Impression: Tick bite Departure Information Dispostion Home / Self-Care Condition GOOD Prescriptions Doxycycline (Monohydrate) (Doxycycline) 100 Mg Cap 100 MG PO BID for 21 Days, #42 TABS Prov: Manuel Chappell PA-C 08/20/17 Referrals No Doctor, Assigned (PCP) Patient Instructions Bites Tick, ED Facts Tick, My [facility] Additional Instructions You were seen in the emergency department for a tick bite. Because of the surrounding area of redness I will treat this with doxycycline in the event that you could have acquired Lyme disease. You have been prescribed Doxycycline to be taken as prescribed. This is an antibiotic. All antibiotics have the potential to cause diarrhea. Stop this medication and contact a medical provider if you were to develop any significant adverse side effects including: wheezing, shortness of breath, passing out, vomiting, or a diffuse rash. Always take antibiotics as directed and COMPLETE the ENTIRE course regardless of the improvement of your symptoms. Protect yourself with sunscreen while on this antibiotic as it increases your skin's sensitivity to the light and cause bad sunburns. In addition, you should be sure to take this pill after eating. Make sure the pill is completely swallowed as this medication can cause irritation to the lining of the esophagus. Do NOT drink milk or eat anything with large amounts of Calcium in them 1 hour prior to taking this medication as this will decrease the effectiveness of the medication. This is 1 tablet every 12 hours for 21 days. Please call your family doctor to schedule follow-up as they may want to test for Lyme disease in the future. Please return with any new/concerning symptoms.
[2017-08-20 13:59] VITALS: BP 132/83; PULSE 71; O2SAT 97
--- NOTE | 2017-08-20 14:11 | EMERGENCY ROOM VISIT NOTE ---
ED Visit Note First contact with patient: 13:30 This Patient was discussed with the physician physician's assistant, Manuel Chappell PA-C. The pertinent historical and physical exam findings were confirmed. I agree with the studies ordered and with the interpretations of these studies. I agree with the disposition and care plan.
== END 2017-08-20 14:00 | disposition home or self-care (01) ==
LOC: C.EDB 13:23 → C.EDD 14:00
DX: S30.851A Superficial foreign body of abdominal wall, initial encounter (principal); W57.XXXA Bitten or stung by nonvenomous insect and other nonvenomous arthropods, initial encounter; K25.9 Gastric ulcer, unspecified as acute or chronic, without hemorrhage or perforation; F17.200 Nicotine dependence, unspecified, uncomplicated

== ENCOUNTER 2019-12-11 09:57 | Inpatient (IN) ==
--- NOTE | 2019-11-30 15:45 | PAT Medication Instructions ---
Medication Instructions Date of Service November 30, 2019 Home Medications gabapentin 100 mg PO TID omeprazole 40 mg PO QAM Take morning of surgery With a small sip of water, OTHERWISE NOTHING TO EAT OR DRINK AFTER MIDNIGHT: gabapentin 100 mg PO TID omeprazole 40 mg PO QAM Take evening before surgery gabapentin 100 mg PO TID Other Notes If you have any questions please call us at [phone] or [phone] or [phone] or [phone]
--- NOTE | 2019-12-01 15:11 | Anesthesiology Consultation ---
Date of Service December 01, 2019 Assessment & Plan (1) Encounter for pre-operative examination: COVID Status: As of 11/30 assessment, patient denies travel to endemic area, known exposure/sick contacts, or symptoms of COVID19. Patient instructed that they and their household members must follow strict social distancing guidelines, wear a mask in public and avoid travel for 14 days prior to surgery. Preoperative COVID19 testing to be completed prior to surgery per surgeon's arra ngements. Patient made aware to self-isolate as much as possible between COVID testing and surgery. S/P lumbar decompression/fusion 2018 @ [facility], no issues noted on anesthesia record. Chart Review Chart Review: Acceptable Risk for Surgery (pending PCP clearance 12/06) and Patient seen in Pre Admission Testing Teaching & Discussion Instructed NPO after midnight before surgery, except medications with 15 cc of water. Medication instructions provided according to the PAT guidelines. History Surgery Operation Date: 12/11/19 11:25 Proposed Procedures p L2-L3 Decompression and Fusion, L3-L4 Hardware Removal; Spinal Cord Monitoring - Javed Blue DO Height/Weight Height: 5 ft 9 in Weight: 68.039 kg Allergies Allergy/AdvReac Type Severity Reaction Status Date / Time No Known Allergies Allergy Unknown Verified 11/26/19 12:20 Medications Home Medications Medication Instructions Recorded Confirmed Last Taken gabapentin 100 mg PO TID 11/26/19 11/26/19 Unknown omeprazole 40 mg PO QAM 11/26/19 11/26/19 Unknown Past Medical History Medical History Arthritis Degenerative disc disease GERD (gastroesophageal reflux disease) Exercise / Class Metabolic Activity III < 4 Walking/Shop/Light housework (Denies CP or SOB with ambulation on one level, does not do stairs but feels he would be SOB with 1 FOS due to deconditioning) Past Family History Family History Other No significant family history Past Surgical History Surgical History History of cataract surgery LEFT/RT History of colonoscopy History of herniorrhaphy History of lumbar surgery TOTAL 3 SURGERIES (HARDWARE IN PLACE) Past Anesthesia History No Hx of Anesthesia Complications and No Family Hx of Anesthesia Complications History of PONV No Hx of PONV and No Hx of Motion Sickness Social History Smoking Status: Former smoker Do You Dip or Chew Tobacco: No Smoking End Date: Quit 4 months ago Hx Alcohol Use: No Hx Substance Use: No Review of Systems Pt denies any recent chest pain, shortness of breath, palpitations, cough, fever, URI, or uncontrolled acid reflux. Physical Exam Vital Signs BP: 118/69 P: 62bpm SPO2: 96% RA T: 98.3 F R: 16 ENMT Mouth: + edentulous (missing all top teeth) and + poor dentition; no chipped teeth and no loose teeth Thyromental Distance: > or= 3.5 Finger Breadths Mallampati Class: I Neck normal visual inspection; neck extension not limited Respiratory normal respiratory effort Auscultation: lungs clear to auscultation bilaterally and + diminished lung sounds (b/l) Cardiovascular Rate/Rhythm: regular rate and regular rhythm Heart Sounds: no murmur Testing Laboratory Results 12/01/19 15:20 12/01/19 15:20 PT 10.1 Seconds (9.0-12.0) 12/01/19 15:20 INR 1.0 (0.9-1.1) 12/01/19 15:20 APTT 25.9 Seconds (21.0-31.0) 12/01/19 15:20 Urine Color Yellow 12/01/19 15:20 Urine Appearance Clear (Clear) 12/01/19 15:20 Urine pH 8.0 (4.5-7.5) H 12/01/19 15:20 Ur Specific Fosters 1.005 (1.000-1.030) 12/01/19 15:20 Urine Protein Negative (Negative) 12/01/19 15:20 Urine Glucose (UA) Negative (Negative) 12/01/19 15:20 Urine Ketones Negative (Negative) 12/01/19 15:20 Urine Nitrite Negative (Negative) 12/01/19 15:20 Ur Leukocyte Esterase Negative (Negative) 12/01/19 15:20 Blood Type A Negative 12/01/19 15:20 Antibody Screen NEGATIVE 12/01/19 15:20 Electrocardiogram Date: 12/01/19 Findings: + SB @ (56bpm) No significant change from 07/10/17. Chest X-Ray Date: 12/01/19 Findings: + NAD
--- NOTE | 2019-12-01 15:41 | XRay Report ---
XR chest Pre-admission PA/Lat CLINICAL HISTORY: Preoperative chest COMPARISON STUDY: 11/25/2015 FINDINGS: The cardiac and mediastinal contours are normal. There is no evidence of focal pulmonary co nsolidation. There is no evidence of failure. No pleural effusions are visualized.[ IMPRESSION: No active disease in the chest. ACT 112: Negative or not required by law. Electronically signed by: Fly Ziegler M.D. 12/01/2019 3:40 PM
--- NOTE | 2019-12-01 15:55 | Electrocardiogram Report ---
Test Reason : Blood Pressure : / mmHG Vent. Rate : 056 BPM Atrial Rate : 056 BPM P-R Int : 142 ms QRS Dur : 090 ms QT Int : 446 ms P-R-T Axes : 074 030 062 degrees QTc Int : 430 ms Sinus bradycardia Otherwise normal ECG When compared with ECG of 10-JUL-2017 11:54, No significant change was found Confirmed by Vernon Adame ([id number]) on 12/01/2019 3:54:35 PM Referred By: Javed Blue Confirmed By:Vernon Adame
[2019-12-01 16:01] LABS: Basophils # (auto) 0.02 K/uL (0-0.2); Basophils % (auto) 0.3 %; Eosinophils # (auto) 0.27 K/uL (0-0.5); Eosinophils % (auto) 3.7 %; Hematocrit (blood only) 40.4 % (42-52); Hemoglobin 13.8 g/dL (14.0-18.0); Immature Granulocytes # (auto) 0.02 K/uL (0.00-0.02); Immature Granulocytes % (auto) 0.3 %; Lymphocytes % (auto) 40.1 %; Mean Corpuscular Hemoglobin 31.5 pg (25-34); Mean Corpuscular Hgb Conc 34.2 g/dL (32-36); Mean Corpuscular Volume 92.2 fL (80-100); Mean Platelet Volume 9.6 fL (7.4-10.4); Monocytes # (auto) 0.55 K/uL (0.11-0.59); Monocytes % (auto) 7.6 %; Neutrophils # (auto) 3.47 K/uL (1.4-6.5); Platelet Count 257 K/uL (130-400); RDW Coefficient of Variation 12.7 % (11.5-14.5); RDW Standard Deviation 42.8 fL (36.4-46.3); Red Blood Count 4.38 M/uL (4.7-6.1); White Blood Count 7.23 K/uL (4.8-10.8)
[2019-12-01 16:10] LABS: Calcium 8.5 mg/dl (8.5-10.1); Creatinine Clr Calc Pharmacy 70.8 ml/min; Est GFR (African American) 86.9; Potassium 4.1 mmol/L (3.5-5.1)
[2019-12-01 16:25] LABS: Partial Thromboplastin Ratio 0.9; Partial Thromboplastin Time 25.9 Seconds (21.0-31.0); Prothrombin Time 10.1 Seconds (9.0-12.0)
[2019-12-01 16:31] LABS: Appearance Urine Clear (Clear); Bilirubin Urine Negative (Negative); Blood Urine Negative (Negative); Color Urine Yellow; Glucose Urine UA Negative (Negative); Ketones Urine Negative (Negative); Leukocyte Esterase Urine Negative (Negative); Nitrite Urine Negative (Negative); Protein Urine Negative (Negative); Specific Gravity Urine 1.005 (1.000-1.030); Urobilinogen Urine Negative (Negative)
[~2019-12-11 09:57] MED LIST changes: +ACETAMINOPHEN 500 MG TAB PO SCH; +CEFAZOLIN 1000MG 1,000 MG/7.5 ML SYR IV SCH; +CeleBREX 200 MG CAP PO SCH; +GABAPENTIN 300 MG CAP PO SCH; +LR 15ML/HR IV SCH; +MIDAZOLAM HCL 1 MG/ML 2ML VIAL ONE; -OMEP40CA41 PO; -RXC5 PO; -TRAM-10 PO
[2019-12-11] MEDS ORDERED: PROPOFOL IV EMULSION 10 MG/ML 20 ML VIAL IV ONE (10:03)
[2019-12-11] MEDS ORDERED: ONDANSETRON INJ 2 MG/ML 2 ML VIAL ONE (10:03)
[2019-12-11] MEDS ORDERED: GLYCOPYRROLATE 0.2 MG/ML VIAL ONE (10:03)
[2019-12-11] MEDS ORDERED: DEXAMETHASONE SOD INJ 4 MG/ML VIAL ONE (10:03)
[2019-12-11] MEDS ORDERED: LIDOCAINE HCL 2% 2 ML VIAL/AMP(20MG/ML) INFIL ONE (10:03)
[2019-12-11] MEDS ORDERED: NEOSTIGMINE METHYLSULFATE 1 MG/ML 10ML VIAL ONE (10:03)
[2019-12-11] MEDS ORDERED: ROCURONIUM BROMIDE 10 MG/ML 5 ML VIAL IV ONE (10:03)
[2019-12-11] MEDS ORDERED: fentaNYL citrate 100 MCG/2 ML VIAL ONE ×2 (10:04)
--- NOTE | 2019-12-11 11:58 | History & Physical Bridge Note ---
Date of Service December 11, 2019 History & Physical Bridge Note I have examined the patient, reviewed the History & Physical and in the interval since the performance of the History & Physical I have noted the following changes of clinical significance: no changes noted
--- NOTE | 2019-12-11 11:59 | History & Physical Report ---
Date of Service December 11, 2019 Assessment & Plan (1) Lumbar stenosis with neurogenic claudication: Admission and Anticipated Discharge Date Admission Date: L to L3 decompression fusion, L3-L4 hardware removal History of Present Illness Chief Complaint: Back and bilateral leg pain Primary Care Provider: Lucho Julian, This is a 64-year-old male well-known to me the presents with marked clinical status with back and bilateral leg pain. Failing course of nonoperative care is here for surgical invention. Allergies Allergy/AdvReac Type Severity Reaction Status Date / Time No Known Allergies Allergy Unknown Verified 12/11/19 10:29 Home Medications Home Medications Medication Instructions Recorded Confirmed Type gabapentin 100 mg PO TID 11/26/19 12/11/19 History omeprazole 40 mg PO QAM 11/26/19 12/11/19 History Past Med/Surg History Medical History Arthritis Degenerative disc disease GERD (gastroesophageal reflux disease) Surgical History History of cataract surgery LEFT/RT History of colonoscopy History of herniorrhaphy History of lumbar surgery TOTAL 3 SURGERIES (HARDWARE IN PLACE) Family History Other No significant family history Social History Smoking Status: Former smoker Smoking End Date: Quit 4 months ago; Second Hand Exposure: Yes; Do You Dip or Chew Tobacco: No; Tobacco Cessation Education Requested by Patient: No Hx Alcohol Use: No Hx Substance Use: No Preferred Language: Romansh Body Art Technician Required: No Beliefs That Will Affect Care: None Current Living Situation: Spouse Feels Safe at Home: Yes Safety Concerns: Feels Safe At This Time Physical Exam Physical Exam: Patient alert and oriented neurologically intact. Lungs clear to auscultation. Heart regular rate and rhythm. Results & Data ([facility]) Vital Signs (Past 12 Hours) Vital Signs Temp Pulse Resp BP Pulse Ox 12/11/19 10:22 36.6 C 59 L 20 126/77 97
[2019-12-11] MEDS ORDERED: PROMETHAZINE HCL 6.25 MG in SODIUM CHLORIDE 0.9% 50 ML IV PRN (12:05)
[2019-12-11] MEDS ORDERED: ePHEDrine sulfate 50 MG/ML AMP IV PRN (12:05)
[2019-12-11] MEDS ORDERED: fentaNYL citrate 100 MCG/2 ML VIAL IV PRN (12:05)
[2019-12-11] MEDS ORDERED: HYDROmorphone INJ 2 MG/ML SYR/VIAL IV PRN (12:05)
[2019-12-11] MEDS ORDERED: ATROPINE SULFATE 0.1 MG/ML 10ML SYR IV PRN (12:05)
[2019-12-11] MEDS ORDERED: ONDANSETRON INJ 2 MG/ML 2 ML VIAL IV PRN ×2 (12:05→16:14)
[2019-12-11] MEDS ORDERED: BACITRACIN INJ 50,000 UNIT VIAL ONE (12:23)
[2019-12-11] MEDS ORDERED: BUPIVACAINE/EPINEPHRINE 0.25% 1:200,000 30 ML VIAL ONE (12:23)
[2019-12-11] MEDS ORDERED: FLOSEAL HEMOSTATIC MATRIX 10ML TOP ONE (13:15)
[2019-12-11] MEDS ORDERED: PHENYLEPHRINE HCL 10 MG/ML VIAL ONE (13:30)
--- NOTE | 2019-12-11 14:08 | Operative Report ---
Post Operative Report Pre & Post Diagnosis Operation Date: 12/11/19 11:25 Pre-Op Diagnosis: Spinal Stenosis, Lumbar Region without Neurogenic Post-Op Diagnosis: Spinal Stenosis, Lumbar Region without Neurogenic I identified the patient and participated in the time-out.: Yes Procedure Operation Date: 12/11/19 11:25 Actual Procedures #1 removal of posterior instrumentation L3-L4. #2 exploration of fusion L3-L4. #3 lumbar decompression with bilateral medial facetectomies and foraminotomies L2-3. #4 posterior spinal fusion L2-3. #5 placement posterior instrumentation L2-3. #6 interbody fusion L2-3. #7 placement peek cage 10 x 22 mm at L2-3. #8 placement of locally harvested morselized autograft in the posterior lateral gutters. Midline placement infuse collagen sponge combined with master graft in the posterior lateral gutters and ostial amp interbody space. Surgeon Javed Blue, Machine Hose Cutter Derek Ibarra Estimated Blood Loss 100 Findings Consistent with Post-Op Diagnosis Specimens None Indications This is a 64-year-old male known to me the presents with significant neurogenic claudication. After failing extensive course of nonoperative care is here for surgical intervention. Description of Procedure Patient was met with identified informed consent obtained. Patient was then taken to the operative suite underwent an patient placed in the prone position the Kevin table at the [place] frame. All bony prominences well-padded eyes inspected to ensure no external pressure placed upon the. This point the lumbar spine was prepped and draped in the normal sterile fashion. Sharp dissection with the assistance of Bovie cautery was performed down to and exposing the lamina and transverse processes of L2 and instrumentation at L3 and L4 bilaterally. Then proceeded move the hardware bilaterally in L3 and L4 explore the fusion mass noting to be mature and intact. And then performed a complete laminectomy of L2 including bilateral medial facetectomies and foraminotomies addressing severe spinal stenosis. Pedicle screws were then placed in L2 and L3 bilaterally with assistance of fluoroscopy and appropriate size leonie placed. By way of a transforaminal approach on the left complete discectomy was performed endplates coated to subcortical being bone and a 10 x 26 mm peek cage filled with osteo-bone graft tapped in position. The rods were then locked into final position bilaterally. The transverse processes of L2 and L3 burred to subcortical bleeding bone. Infuse collagen sponge master graft local autograft was placed in the posterior gutters. 15 round RANDI drain inserted. The incision was then closed with 1 Vicryl the fascia 2-0 Vicryl subcutaneously and 4 Monocryl for final skin closure. Steri-Strip sterile dressings placed. Patient waken taken PACU stable condition. Please note spinal cord monitoring was utilized that the procedure no changes noted. Lastly Derek Ibarra was present at the entire surgery involved the patient positioning complex portions of the surgery and final skin closure. I attest to the content of the Intraoperative Record and any orders documented therein. Any exceptions are noted below.
--- NOTE | 2019-12-11 14:16 | Fluoroscopy Report ---
FL lumbar spine 2-3V CLINICAL HISTORY: L2-L3 DECOMPRESSION/FUSION COMPARISON STUDY: None. FLUOROSCOPY TIME: 9 seconds. FINDINGS: 2 fluoroscopic spot images of the lumbar spine demonstrate posterior decompression and fusi on at L2-L3 with pedicle screws and rods. The hardware appears intact. IMPRESSION: Fluoroscopy provided for L2-L3 posterior decompression and fusion ACT 112: Negative or not required by law. Electronically signed by: Omid Banuelos M.D. 12/11/2019 2:15 PM
--- NOTE | 2019-12-11 15:03 | Anesthesiology Progress Note ---
Date of Service December 11, 2019 Anesthesia Post Procedure Vital Signs Vital Signs: Temp Pulse Pulse Resp BP Pulse Ox 12/11/19 15:00 63 19 118/59 L 99 12/11/19 14:50 57 L 12 118/70 97 12/11/19 14:40 60 15 136/69 100 12/11/19 14:30 36.9 C 63 12 137/71 100 12/11/19 10:22 36.6 C 59 L 20 126/77 97 Pain Intensity Lower Back: Pain Intensity: 4 Transfer of Care Handoff Completed per policy Notes Mental Status: alert / awake / arousable Patient Amnestic to Procedure: Yes Nausea / Vomiting: adequately controlled Pain: adequately controlled Airway Patency, RR, SpO2: stable & adequate BP & HR: stable & adequate Hydration State: stable & adequate Anesthetic Complications: no major complications apparent
[2019-12-11] MEDS ORDERED: bisacodyL 10 MG SUPP PR PRN (16:14)
[2019-12-11] MEDS ORDERED: DO NOT ADMINISTER FLU VACCINE PRN (16:14)
[2019-12-11] MEDS ORDERED: METOCLOPRAMIDE HCL INJ 5 MG/ML 2 ML VIAL IV PRN (16:14)
[2019-12-11] MEDS ORDERED: LORazepam 0.5 MG/1 ML VIAL IV PRN (16:14)
[2019-12-11] MEDS ORDERED: MAGNESIUM HYDROXIDE SUSP 30 ML UDC PO PRN (16:14)
[2019-12-11] MEDS ORDERED: HYDROmorphone INJ 0.5 MG/0.5 ML SYR IV PRN (16:14)
[2019-12-11] MEDS ORDERED: ONDANSETRON 4 MG OD TAB PO PRN (16:14)
[2019-12-11] MEDS ORDERED: SOD PHOSPHATE/SOD BIPHOSPHATE ENEMA 132 ML BTL PR PRN (16:14)
[2019-12-11] MEDS ORDERED: ACETAMINOPHEN 1,000 MG/100 ML VIAL IV PRN (16:14)
[2019-12-11] MEDS ORDERED: TRAMADOL HCL 50 MG TABLET PO PRN (16:14)
[2019-12-11] MEDS ORDERED: DO NOT ADMINISTER PNEUMOCOCCAL VACCINE PRN (16:14)
[2019-12-11] MEDS ORDERED: NALOXONE HCL 0.4 MG/1 ML VIAL/CARP IV PRN (16:14)
[2019-12-11] MEDS ORDERED: PROMETHAZINE HCL 12.5 MG in SODIUM CHLORIDE 0.9% 50 ML IV PRN (16:14)
[2019-12-11] MEDS ORDERED: HYDROmorphone INJ 1 MG/ML SYRINGE IV PRN (16:14)
[2019-12-11] MEDS ORDERED: ALUMINUM/MAGNESIUM SUSP 30 ML UDC PO PRN (16:14)
[2019-12-11] MEDS ORDERED: ACETAMINOPHEN 500 MG TAB PO PRN (16:14)
[2019-12-11] MEDS ORDERED: LORazepam 0.5 MG TAB PO PRN (16:14)
[2019-12-11] MEDS: OXYCODONE HCL IR 5 MG TAB (IMMEDIATE RELEASE) PO PRN (16:38)
[2019-12-11] MEDS: KETOROLAC TROMETHAMINE 15 MG/ML VIAL IV SCH ×2 (16:44→22:54)
[2019-12-11] MEDS: LACTATED RINGER'S 1,000 ML IV SCH (20:31)
[2019-12-11] MEDS: GABAPENTIN 100 MG CAP PO SCH (20:31)
[2019-12-11] MEDS: DOCUSATE SODIUM/SENNA 50/8.6MG TAB PO SCH (20:31)
[2019-12-11] MEDS: CEFAZOLIN 1000MG 1,000 MG/7.5 ML SYR IV SCH (20:31)
[2019-12-12] MEDS: CEFAZOLIN 1000MG 1,000 MG/7.5 ML SYR IV SCH (04:07)
[2019-12-12] MEDS: KETOROLAC TROMETHAMINE 15 MG/ML VIAL IV SCH ×2 (04:08→12:08)
[2019-12-12] MEDS: OXYCODONE HCL IR 5 MG TAB (IMMEDIATE RELEASE) PO PRN ×3 (04:11→23:31)
[2019-12-12] MEDS: FAMOTIDINE 20 MG TAB PO PRN (04:11)
[2019-12-12] MEDS: POLYETHYLENE (MIRALAX) 17 GM PACK PO SCH ×4 (05:31→23:36)
[2019-12-12] MEDS: LACTATED RINGER'S 1,000 ML IV SCH (05:46)
[2019-12-12 06:07] LABS: Basophils # (auto) 0.01 K/uL (0-0.2); Basophils % (auto) 0.1 %; Hematocrit (blood only) 35.9 % (42-52); Hemoglobin 12.2 g/dL (14.0-18.0); Immature Granulocytes # (auto) 0.03 K/uL (0.00-0.02); Immature Granulocytes % (auto) 0.3 %; Lymphocytes # (auto) 1.48 K/uL (1.2-3.4); Lymphocytes % (auto) 12.6 %; Mean Corpuscular Hemoglobin 31.7 pg (25-34); Mean Corpuscular Volume 93.2 fL (80-100); Mean Platelet Volume 9.2 fL (7.4-10.4); Monocytes # (auto) 0.93 K/uL (0.11-0.59); Monocytes % (auto) 7.9 %; Neutrophils % (auto) 79.1 %; Platelet Count 215 K/uL (130-400); RDW Coefficient of Variation 13.1 % (11.5-14.5); RDW Standard Deviation 44.8 fL (36.4-46.3); Red Blood Count 3.85 M/uL (4.7-6.1); White Blood Count 11.75 K/uL (4.8-10.8)
[2019-12-12 06:39] LABS: BUN Creatinine Ratio 9.3 (10-20); Calcium 8.9 mg/dl (8.5-10.1); Creatinine Clr Calc Pharmacy 58.8 ml/min; Est GFR (Non-African American) 61.2; Potassium 4.7 mmol/L (3.5-5.1)
[2019-12-12] MEDS: GABAPENTIN 100 MG CAP PO SCH ×3 (08:14→20:07)
[2019-12-12] MEDS: PANTOprazole 40 MG TAB PO SCH (08:14)
--- NOTE | 2019-12-12 10:00 | Orthopedic Progress Note ---
Date of Service December 12, 2019 Assessment & Plan (1) Lumbar stenosis with neurogenic claudication: Admission and Anticipated Discharge Date Admission Date: December 11, 2019 This time we will continue physical therapy monitor his RANDI output anticipate discharge home in the next few days. Subjective Back pain controlled leg pain improved. Physical Exam Physical Exam: Patient is good strength testing appears comfortable. Results & Data ([facility]) Vital Signs (Past 12 Hours) Vital Signs Temp Pulse Resp BP Pulse Ox 12/12/19 07:57 36.6 C 53 L 18 106/65 99 12/12/19 02:29 36.4 C L 50 L 16 100/55 L 97 12/11/19 23:06 36.4 C L 53 L 16 113/69 99
[2019-12-12] MEDS: DOCUSATE SODIUM/SENNA 50/8.6MG TAB PO SCH (20:07)
[2019-12-13] MEDS: POLYETHYLENE (MIRALAX) 17 GM PACK PO SCH ×3 (05:55→18:27)
--- NOTE | 2019-12-13 08:11 | Orthopedic Progress Note ---
Date of Service December 13, 2019 Assessment & Plan (1) Lumbar stenosis with neurogenic claudication: Patient stable postoperative day #2. He has not had a bowel movement and his drain is still placing out a fair amount of drainage. We will keep him today and likely discharge him home tomorrow. We will continue with GI DVT prophylaxis as well as pain control. Admission and Anticipated Discharge Date Admission Date: December 11, 2019 Subjective Patient is doing well postop day #2. He states that his pain is controlled. He is tolerating p.o. He has not yet had a bowel movement. He is walking with the use of a walker. He denies any other numbness, tingling, or paresthesias. Physical Exam Physical Exam: On exam he is alert and oriented. His RANDI drain is in place and holding suction his abdomen soft and nontender calves are supple nontender. His dressing is clean dry and intact. Results & Data ([facility]) Vital Signs (Past 12 Hours) Vital Signs Temp Pulse Resp BP Pulse Ox 12/13/19 06:35 36.5 C 55 L 16 110/66 96 12/12/19 23:08 36.3 C L 57 L 16 116/70 96
[2019-12-13] MEDS: DEXAMETHASONE SOD PHOSPHATE 8 MG in SYRINGE 0 ML IV SCH (09:01)
[2019-12-13] MEDS: PANTOprazole 40 MG TAB PO SCH (09:02)
[2019-12-13] MEDS: GABAPENTIN 100 MG CAP PO SCH ×3 (09:02→20:32)
[2019-12-13] MEDS: FAMOTIDINE 20 MG TAB PO PRN (12:14)
[2019-12-13] MEDS: OXYCODONE HCL IR 5 MG TAB (IMMEDIATE RELEASE) PO PRN ×2 (15:38→20:35)
[2019-12-13] MEDS: DOCUSATE SODIUM/SENNA 50/8.6MG TAB PO SCH (20:32)
[2019-12-14] MEDS: OXYCODONE HCL IR 5 MG TAB (IMMEDIATE RELEASE) PO PRN (03:11)
[2019-12-14] MEDS: PANTOprazole 40 MG TAB PO SCH (07:10)
[2019-12-14] MEDS: GABAPENTIN 100 MG CAP PO SCH (07:10)
[2019-12-14] MEDS: DEXAMETHASONE SOD PHOSPHATE 8 MG in SYRINGE 0 ML IV SCH (07:10)
--- NOTE | 2019-12-14 08:19 | Anesthesiology Progress Note ---
Date of Service December 14, 2019 Anesthesia Post Procedure Vital Signs Vital Signs: Temp Pulse Resp BP BP Pulse Ox 12/14/19 06:30 36.4 C L 55 L 18 127/73 98 12/13/19 23:24 36.3 C L 55 L 16 110/61 96 12/13/19 15:25 36.6 C 67 18 124/73 96 Pain Intensity Lower Back: Pain Intensity: 2 Notes Mental Status: alert / awake / arousable Patient Amnestic to Procedure: Yes Nausea / Vomiting: adequately controlled Pain: adequately controlled Airway Patency, RR, SpO2: stable & adequate BP & HR: stable & adequate Hydration State: stable & adequate Anesthetic Complications: no major complications apparent and Pt Satisfied with anesthetic care
--- NOTE | 2019-12-14 13:58 | Discharge Summary ---
Date of Service December 14, 2019 Admission HPI Per Admitting Provider This is a 64-year-old male well-known to me the presents with marked clinical status with back and bilateral leg pain. Failing course of nonoperative care is here for surgical invention. Principal Diagnosis Lumbar spinal stenosis with neurogenic claudication Discharge Data Allergies Allergy/AdvReac Type Severity Reaction Status Date / Time No Known Allergies Allergy Unknown Verified 12/11/19 10:29 Consultations 12/11/19 16:14 Consult Case Management - Discharge Planning Routine Procedures Performed Operation Date: 12/11/19 11:25 Actual Procedures p L2-L3 Decompression and Fusion,Spinal Cord Monitoring(Not Applicable) - Javed Blue DO s L3-L4 Hardware Removal(Not Applicable) - Javed Blue DO Ordered Studies 12/11/19 07:00 FL fluoroscopy <1hr Routine [place] lumbar spine 2-3V Routine Hospital Course (1) Lumbar stenosis with neurogenic claudication: Patient underwent lumbar decompression fusion tolerated this well was taken to orthopedic floor possibly. Postop day 1 he was up and ambulating progressed to postop day #2 RANDI drain decreasing appropriately. Postop day 3 pain was well controlled RANDI drain decreased extra strength testing. Socially discharged home. Discharge orders instructions from the chart for further review. Total Time Total Time Spent Total Time Spent (In Minutes): 20 minutes Discharge Plan Discharge Items Patient Disposition: Home - Self-Care Reason For Visit: Spinal Stenosis, Lumbar Region without Neurogenic Discharge Diagnosis: Lumbar spinal stenosis with neurogenic claudication Activity: As commented below Non-emergency contact: Primary Care Provider Call non-emergency contact if: you have any medication questions Follow-up/Referrals: Lucho Julian DO [Primary Care Provider] - Diet: Regular Addtl Attending Provider Instructions: ACTIVITY RECOMMENDATIONS: SELF CARE INSTRUCTIONS AFTER THORACIC/LUMBAR FUSIONS 1. You may walk to your tolerance. It is good exercise for your legs and back. Expect some back and intermittent leg aches and pains. 2. You may perform "counter-top" level activities (make a sandwich, rodolfo with a project, etc.). 3. No bending or lifting of more than 10 pounds or back twisting of any nature (roll like a log when turning in bed). 4. You may ride in a car for 20-30 minutes at a time. No driving until after your first visit with your doctor. 5. Frequent changes of position and restricting sitting to 30 minutes at a time will help limit the amount of back spasms and stiffness you may experience. 6. You may discontinue the use of ambulatory aids (cane, crutches, etc.) once your strength and confidence allow. 7. You may turbine operator the shower and let water strike your incision when you arrive home at least once daily. Do not take a tub bath, sit in a hot tub or go into a swimming pool until after your first recheck in the office. SPECIAL CARE INSTRUCTIONS: VERY IMPORTANT TO READ AND REVIEW A. Your surgical incision has been closed with a cosmetic suture under the skin that will dissolve in about 6 weeks. In 14 days, you can use a pair of clean scissors and cut the suture that is left outside of the skin at the ends of your incision. 1. The small skin tapes can be removed 7 days after surgery if they have not fallen off by that point. 2. You may keep the wound open to air as much as possible to promote healing after post-op day number 5 unless told otherwise by your doctor. 3. If you think the wound looks like it is becoming infected (redness or worsening drainage) and/or you are experiencing fever, chill or worsening back pain and muscle spasms, contact the office so that we may evaluate you as soon as possible. B. Complications are uncommon, but please contact us if you have any signs or symptoms of: 1. wound infection (fever higher than 102.5 degrees F, redness, separation of wound, drainage, or increasing pain from the incision) 2. blood clots in legs (pain, swelling, redness and warmth in legs) 3. urinary tract infection (fever higher than 102.5 degrees F, burning upon urination or increased frequency of urination) 4. nerve problems (inability to walk on your toes or heels, numbness, loss of bowel or bladder control) 5. any other symptoms that concern you C. Please call the office at if you have any concerns or questions about your operation or recovery. D. No smoking! Smoking drastically decreases the chance of a solid fusion. E. Do not take any anti-inflammatory medications (Indocin, Advil, Motrin, Aspirin, Naprosyn, etc.) as these may inhibit the chance of a solid fusion. Tylenol is okay to take for pain. MANAGING PAIN AFTER SPINAL SURGERY 1. Narcotic medication is intended for short-term use and will be provided for surgical pain. Surgical pain usually lasts for a period of 4-6 weeks. Narcotic medication includes Percocet, Vicodin, Darvocet, Tylenol #3 or Lortab. 2. Longer-term pain is more appropriately treated with non-narcotic medication such as Tylenol ES. 3. Muscle spasm is not appropriately treated with narcotics. Muscle relaxers such as Soma, Flexeril or Skelaxin can be used along with Tylenol ES. 4. Remember that we all live with some "aches and pains". This is not unusual or uncommon after an injury or as we get older. a. Back pain is expected and may include muscle spasms for 4 to 6 weeks aft er surgery. The pain should gradually improve. If the pain worsens for no apparent reason, please contact the office. b. Intermittent leg pain may also be experienced and should not be concerned about unless it worsens for no apparent reason. If so, please contact the office. 5. We will provide appropriate medication within the normal guidelines of their prescribed use. We will also be very cautious and aware of potential abuse and extended duration of patients' medication needs. a. Pain medications are for your comfort and to assist with sleep and rest so that the tissue can heal. They are not provided in order to return to normal activity and should not be used through the day. To do so or worsening pain at night can result from ongoing tissue damage and development of tolerance to the prescribed medicine. 6. Please allow 2-3 days to process refills. Prescriptions will not be mailed but must be picked up at the office. FOLLOW UP VISIT: Keep your scheduled follow-up appointment. Any questions, please call the office at . Pending Studies at Discharge: No Stand-Alone Forms: My [facility], Smoking Cessation Medications and DC Order Prescriptions: New tramadol 50 mg tablet 50 mg PO Q6H PRN (Reason: pain, moderate) Qty: 20 RF: 0 oxycodone 5 mg tablet 5 mg PO Q6H PRN (Reason: pain, severe) Qty: 20 RF: 0 Continued omeprazole 40 mg Capsule,Delayed Release(Dr/Ec) 40 mg PO QAM RF: 0 Discontinued gabapentin 100 mg Tablet 100 mg PO TID RF: 0 Discharge Orders: Discharge Order (Routine); Ordered 12/14/19 Ordered By: Javed Blue Admission Data Admit Date/Time: 12/11/19 14:44 Attending Provider: Javed Blue Admit Provider: Javed Bule Primary Care Provider: Lucho Julian Other Interventions: Discharge Summary Assessment (RN) Last Done: 12/14/19 10:38
== END 2019-12-14 11:44 | disposition home or self-care (01) | DRG 455 ==
LOC: ASU 09:57 → 3E 14:44

== ENCOUNTER 2024-06-11 05:48 | Inpatient (IN) ==
--- NOTE | 2024-05-22 13:55 | PAT Medication Instructions ---
Medication Instructions Date of Service May 22, 2024 Home Medications omeprazole 40 mg capsule,delayed release 40 mg PO QAM acetaminophen 500 mg tablet 1,000 mg PO QID PRN Pain albuterol sulfate 90 mcg/actuation aerosol inhaler 2 puff inhalation Q4H PRN asthma apremilast 30 mg tablet (Otezla) 30 mg PO BID gabapentin 300 mg capsule 300 mg PO UD ASK your prescriber and surgeon apremilast 30 mg tablet (Otezla) 30 mg PO BID Take morning of surgery With a small sip of water, OTHERWISE NOTHING TO EAT OR DRINK AFTER MIDNIGHT: omeprazole 40 mg capsule,delayed release 40 mg PO QAM acetaminophen 500 mg tablet 1,000 mg PO QID PRN Pain (if needed) albuterol sulfate 90 mcg/actuation aerosol inhaler 2 puff inhalation Q4H PRN asthma (use if needed; please bring rescue inhaler with you to hospital day of surgery if possible) gabapentin 300 mg capsule 300 mg PO UD Take evening before surgery acetaminophen 500 mg tablet 1,000 mg PO QID PRN Pain (if needed) albuterol sulfate 90 mcg/actuation aerosol inhaler 2 puff inhalation Q4H PRN asthma (if needed) gabapentin 300 mg capsule 300 mg PO UD Other Notes If you have any questions please call us at [phone] or [phone] or [phone] or [phone]
--- NOTE | 2024-06-02 08:47 | Anesthesiology Consultation ---
Date of Service June 02, 2024 Assessment & Plan (1) Encounter for pre-operative examination: Chart Review Chart Review: Acceptable Risk for Surgery (pending surgeon ordered PCP clearance ) and Patient seen in Pre Admission Testing - Awaiting PCP clearance 06/17/24 (Dr Darden - [facility])- please fax testing per patient request for PCP to review Per PAT appt on 06/02/24, no recent illness/disease exposures, illness related symptoms, or recent illness/disease positive tests. Will leave to surgeon's discretion if preop Covid testing needed Teaching & Discussion Pre-Anesthesia Teaching/Discussion Notes: Instructed NPO after midnight before surgery,except medications with 15 cc of water. Medication instructions provided according to the PAT guidelines. History Surgery Operation Date: 06/25/24 11:05 Proposed Procedures p T12-L2 Decompression and Fusion with Spinal Cord Monitoring - Javed Blue, DO Height/Weight Height: 5 ft 9 in Weight: 82.7 kg Allergies Allergy/AdvReac Type Severity Reaction Status Date / Time No Known Allergies Allergy Unknown Verified 05/22/24 12:55 Medications Home Medications Medication Instructions Recorded Confirmed Last Taken omeprazole 40 mg capsule,delayed 40 mg PO QAM 11/26/19 05/22/24 12/11/19 05:30 release acetaminophen 500 mg tablet 1,000 mg PO QID PRN Pain 05/22/24 05/22/24 Unknown albuterol sulfate 90 mcg/actuation 2 puff inhalation Q4H PRN asthma 05/22/24 0 05/22/24 Unknown aerosol inhaler apremilast 30 mg tablet (Otezla) 30 mg PO BID 05/22/24 05/22/24 Unknown gabapentin 300 mg capsule 300 mg PO UD 05/22/24 05/22/24 Unknown Past Medical History Medical History Arthritis Chronic back pain COPD (chronic obstructive pulmonary disease) has rescue inhaler, has not used for a few months, 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 blue in [place], advised to bring remote DOS , medtronic Exercise / Class Metabolic Activity III < 4 Walking/Shop/Light housework (no chest pain or SOB with flat surface ambulation ) Past Family History Family History Other No significant family history Past Surgical History Surgical History History of cataract surgery b/l History of herniorrhaphy History of lumbar surgery total of 5 surgeries, has spinal cord stim implanted - medtronic Past Anesthesia History No Hx of Anesthesia Complications and No Family Hx of Anesthesia Complications History of PONV No Hx of PONV and No Hx of Motion Sickness Social History Smoking Status: Former smoker Do You Dip or Chew Tobacco: No Smoking End Date: may 2022 Hx Alcohol Use: No Hx Substance Use: No substance use type: does not use Review of Systems - Snoring- unknown Patient denies chest pain, shortness of breath at rest, cough, wheezing, palpitations. No hx of seizures, stroke, CA. No hx of blood clots or blood transfusions Physical Exam Vital Signs VITALS BP 154/83 P 72 TEMP 97.8 SP02 97% RESP 16 Constitutional no acute distress ENMT Mouth: no TMJ clicking Thyromental Distance: > or= 3.5 Finger Breadths (3.5) Mallampati Class: II Neck + limited neck extension (mild) Respiratory normal respiratory effort; no respiratory distress Auscultation: lungs clear to auscultation bilaterally and + diminished lung sounds (mild throughout); no wheezes Cardiovascular Rate/Rhythm: regular rate and regular rhythm Heart Sounds: no murmur Vessels: no carotid bruit Musculoskeletal Spine: no pain with cervical ROM Extremities: extremities normal to inspection Psychiatric Orientation: alert Lab Results Anesthesia Preop Results Results Anesthesia Widget: WBC 7.53 K/ul (4.8-10.8) 06/02/24 Hgb 13.2 g/dl (14.0-18.0) L 06/02/24 Hct 38.9 % (42.0-52.0) L 06/02/24 Plt 309 K/uL (130-400) 06/02/24 Na 138 mmol/L (136-145) 06/02/24 K 4.0 mmol/L (3.5-5.1) 06/02/24 Cl 102 mmol/L (98-107) 06/02/24 CO2 30 mmol/L (21-32) 06/02/24 BUN 16 mg/dl (6-23) 06/02/24 Creat 1.13 mg/dl (0.6-1.4) 06/02/24 Glucose Level 113 mg/dl (70-99(Fasting)) H 06/02/24 PT 10.3 Seconds (9.0-12.0) 06/02/24 PTT 27 Seconds (21-31) 06/02/24 INR 0.9 (0.9-1.1) 06/02/24 Urine Color Yellow 06/02/24 Urine Appearance Clear (Clear) 06/02/24 Urine pH 7.0 (4.5-7.5) 06/02/24 Urine Specific [place] 1.004 (1.000-1.030) 06/02/24 Urine Protein Negative (Negative) 06/02/24 Urine Glucose (UA) Negative (Negative) 06/02/24 Urine Ketones Negative (Negative) 06/02/24 Urine Blood Negative (Negative) 06/02/24 Urine Nitrite Negative (Negative) 06/02/24 Urine Bilirubin Negative (Negative) 06/02/24 Urine Urobilinogen Negative (Negative) 06/02/24 Urine Leukocyte Esterase Negative (Negative) 06/02/24 Blood Type A Negative 06/02/24 Antibody Screen NEGATIVE 06/02/24 Testing Electrocardiogram Date: 06/02/24 Findings: + NSR @ (67bpm) Normal EKG per cardio Chest X-Ray Date: 06/02/24 Findings: + NAD
[2024-06-11] MEDS ORDERED: DEXAMETHASONE SOD INJ 4 MG/ML VIAL ONE (06:49)
[2024-06-11] MEDS ORDERED: ROCURONIUM BROMIDE 10 MG/ML 5 ML VIAL IV ONE ×2 (06:49→08:35)
[2024-06-11] MEDS ORDERED: LIDOCAINE 2% 2 ML VIAL/AMP(20MG/ML) INFIL ONE ×2 (06:49)
[2024-06-11] MEDS ORDERED: PROPOFOL IV EMULSION 10 MG/ML 20 ML VIAL IV ONE (06:49)
[2024-06-11] MEDS ORDERED: ePHEDrine sulfate 50 MG/ML AMP ONE (06:50)
[2024-06-11] MEDS ORDERED: ONDANSETRON INJ 2 MG/ML 2 ML VIAL ONE (06:50)
[2024-06-11] MEDS ORDERED: SODIUM CHLORIDE 0.9% PF INJ 10 ML VIAL ONE (06:50)
[2024-06-11] MEDS ORDERED: fentaNYL citrate PF 100 MCG/2 ML VIAL ONE ×2 (06:53→08:15)
[2024-06-11] MEDS ORDERED: MIDAZOLAM HCL 1 MG/ML 2ML VIAL ONE (06:53)
--- OUTSIDE RECORDS SUMMARY | 2024-06-11 06:53 | External Medical Summary | Summary of Care ---
Author Name Unknown Organization [facility] Address [address] [facility] [address] Phone [phone] Care Team Providers Care Helicopter Specialist Name Role Phone Tiffanie Darden MD Primary Care Provider [phone] Reason for Visit * Reason Comments pre-op exam Back surgery 025 [facility] - Dr. Blue Encounter Details Date Type Department Care Team (Latest Contact Info) Description 06/09/2024 8:00 AM EST Office Visit General Internal Medicine [facility] [address] [facility] [address] Candice Ellington PA-C [address] [facility] [place] [address] Pre-op exam*; Thoracic myelopathy; Degeneration of intervertebral disc of lumbar region with discogenic back pain Allergies No known active allergiesdocumented as of this encounter (statuses as of 06/09/2024) Medications Spiriva Respimat 2.5 MCG/ACT Inhalation Aerosol Solution (Tiotropium [place] Monohydrate)Indica tions:COPD, severity to be determined (HCC) inhale 2 puffs by mouth and INTO THE LUNGS once daily 12 g 3 3 Active Atorvastatin Calcium 20 MG Oral Tablet (Lipitor)Indicatio ns:Hyperlipidemia with target LDL less than 100 take 1 tablet by mouth once daily 100 Tablet 2 3 Active Ventolin HFA 108 (90 Base) MCG/ACT Inhalation Aerosol SolutionIndication s:Tobacco use disorder,Acute URI,SOB (shortness of breath) Inhale 2 Puffs by mouth every 4 hours as needed for Wheezing or Dyspnea. 48 g 3 3 Active Gabapentin 300 MG Oral Capsule (Neurontin)Indicat ions:Postlaminecto my syndrome, lumbar Take 1 cap in am , 1 cap in afternoon and 2 cap at night 360 Capsule 1 4 Active Fluticasone-Salmet mayda 250-50 MCG/ACT Inhalation Aerosol Powder Breath Activated (Advair Diskus)Indications :COPD, group B, by GOLD 2017 classification ([facility]) Inhale 1 Puff by mouth in the morning and 1 Puff before bedtime. 3 Each 3 4 Active Otezla 30 MG Oral Tablet (Apremilast) Take one tablet by mouth twice daily. 60 Tablet 5 06/05/2024 10:38 AM EST 4 Active Clobetasol Propionate 0.05 % External FoamIndications:Ps oriasis Apply to elbows and knees nightly as needed 50 g 5 Active Cyclobenzaprine HCl 10 MG Oral Tablet (Flexeril) TAKE 1 TABLET BY MOUTH AT 1/2 HOUR PRIOR TO BEDTIME NEEDED FOR SPASM 30 Tablet 5 Active Omeprazole 40 MG Oral Capsule Delayed Release (PriLOSEC)Indicati ons:Gastroesophage al reflux disease without esophagitis TAKE 1 CAPSULE BY MOUTH EVERY MORNING 90 Capsule 2 5 Active documented as of this encounter (statuses as of 06/09/2024) Active Problems Problem Noted Date Diagnosed Date Hyperlipidemia with target LDL less than 100 Food insecurity 08/26/2023 Overview: Per [facility] Protocol Prediabetes 01/21/2023 Overview: Per Prediabetes protocol S/P insertion of spinal cord stimulator 01/09/20 23 COPD, group B, by GOLD 2017 classification 10/23 Overview: Per COPD GOLD Classification Chronic migraine without aur a without status migrainosus, not intractable 09/22/2020 Gastroesophageal reflux disease without esophagi tis 03/18/2020 S/P lumbar spinal fusion 10/24/2016 Lumbar degenerative disc disease 01/06/2016 Psoriasis 11/09/2013 Migraine headache 06/22/2013 Renal cyst, acquired, left 06/09/2012 History of tobacco abuse 02/05/2001 documented as of this encounter (statuses as of 06/09/2024) Resolved Problems Problem Noted Date Diagnosed Date Resolved Date Food insecurity 12/25/2021 04/25/2023 Overview: Per [facility] Protocol COPD, severity to be determined 03/23/2021 10/26/2021 Overview: Per COPD GOLD Classification Food insecurity 11/26/2017 09/22/2020 Overview: Per [facility] Protocol Left renal mass 10/08/2012 05/12/2014 S/P cholecystectomy 06/09/2012 01/09/20 23 Lumbago 07/18/2000 11/04/2017 UNSPECIFIED GASTRITIS AND GA STRODUODENITIS WITHOUT MENTION OF HEMORRHAGE 03/18/2020 documented as of this encounter (statuses as of 06/09/2024) Immunizations Name Administration Dates Next Due COVID-19 mRNA, LNP-s, No Pre serve, 2-Dose Series ([employer]) 03/03/2021,08/31/2020,08/10/2020 COVID-19, MRNA-LNP, PF, 30 M CG/0.3 mL, 12 YRS AND ABOVE, IM ([facility] 01/10/2023 Covid-19, Mrna, Lnp-s, Pf, B ivalent, 30 Mcg, IM, 12 yrs and above (Pfizer) 01/21/2022 PPD 03/26/2012 Pneumococcal Conjugate Vacc, 13 Valent (Prevnar) 12/07/2019 Pneumococcal Polysaccharide PPV23 (Pneumovax) 09/26/2021,12/16/2015 Season Influenza, Quad, PF, Adjuvanted, 65+ Yrs, IM (FLUAD) 03/18/2020 Seasonal Influenza Vac., MDV , IM, 0.5 mL (Fluzone) 03/05/2007 Seasonal Influenza, High Dos e, Trivalent, PF, IM (Fluzone HD) 01/09/2024 Seasonal Influenza, PF, 6 M & above, IM , (FluLaval or Fluzone) 12/01/2022,03/03/2021 Seasonal Influenza, Quadriva lent Hd (Fluzone Hd) 07/07/2022 TDAP (age 10 and older)(Boostrix) 12/07/2019 TDAP, Age 7 and older, IM (Adacel) 12/01/2007 Zoster Vaccine Recombinant (Shingrix) 2020 ,05/27/2020 documented as of this encounter Social History Tobacco Use Types Packs/Day Years Used Date Smoking Tobacco: Former Cigarettes 0.5 51 0 05/1971 - 05/2022 Smokeless Tobacco: Never Tobacco Cessation:Counseling Given: Not Answered Comments:smoker since age 15 Alcohol Use Standard Drinks/Week Comments No 0 (1 standard drink = 0.6 oz pur e alcohol) PHQ-2 Answer Date Recorded PHQ Adult Total Score 0 08/23/2023 Hunger Vital Sign Answer Date Recorded Within the past 12 months, y ou worried that your food would run out before you got the money to buy more. Sometimes true Within the past 12 months, t he food you bought just didn't last and you didn't have money to get more. Sometimes true Childcare Answer Date Recorded Do you feel overwhelmed with taking care of a child, family member or friend? No 08/09/2023 Does your family need help f inding childcare? (Household - for ages 0-17 years) Not on file 08/09/2023 Clothing Answer Date Recorded Have you been unable to get clothing when it was really needed? No 08/09/2023 Is your family able to get c lothes or diapers when needed? (Household - for ages 0-17 years) Not on file 08/09/2023 Personal Safety Answer Date Recorded Do you feel unsafe or have concerns for your saf ety? No 08/09/2023 Do you have concerns for you r family's safety? (Household - for ages 0-17 years) Not on file 08/09/2023 Utilities Answer Date Recorded Do you have trouble paying y our heating, water, or electric bill? No 08/09/2023 Is your family able to pay t he heat, water, or electric bill? (Household - for ages 0-17 years) Not on file 08/09/2023 Does your family have access to good internet? (Household - for ages 0-17 years) Not on file 08/09/2023 Employment Status Answer Date Recorded Are you unemployed or without regular income? No 08/09/2023 Does the household have a re gular source of income? (Household - for ages 0-17 years) Not on file 08/09/2023 Social Connections Answer Date Recorded How often do you feel lonely or isolated from th ose around you? Never 08/09/2023 Financial Resource Strain Answer Date R ecorded Do you have any trouble payi ng for your medications, or do you think you might in the future? No 08/09/2023 Does your family have troubl e paying for medicine? (Household - for ages 0-17 years) Not on file 08/09/2023 Transportation Needs Answer Date Record ed READ ONLY Do you have troubl e getting a ride to medical visits or work? Never True 08/09/2023 Does your family have a hard time getting a ride to doctors visits? (Household - for ages 0-17 years) Not on file 08/09/2023 Has lack of transportation k ept you from medical appointments, meetings, work, or from getting things needed for daily living? Check all that apply. (Adult - for ages 18 years and over) Not on file 08/09/2023 Do you (or your family) have trouble finding or paying for a ride (transportation)? (Household - for ages 0-17 years) Not on file 08/09/2023 Housing Stability Answer Date Recorded Do you currently live in a s helter or have no steady place to sleep at night? No 08/09/2023 READ ONLY Do you think you a re at risk of becoming homeless? No 08/09/2023 Does your family worry about paying for your home or becoming homeless? (Household - for ages 0-17 years) Not on file 0 08/09/2023 Are you homeless or worried that you might be in the future? (Adult - for ages 18 years and over) Not on file Are you (or your family) tiff eless or worried that you might be in the future? (Household - for ages 0-17 years) Not on file Food Insecurity Answer Date Recorded Do you need food for this week? No 08/09/2023 Are you able to get enough f ood for your family? (Household - for ages 0-17 years) Not on file 08/09/2023 Does your family need food t his week? (Household - for ages 0-17 years) Not on file 08/09/2023 Do you always have enough fo od for your family? (Household - for ages 0-17 years) Not on file 08/09/2023 Food Insecurity Answer Date Recorded Within the past 12 months, y ou worried that your food would run out before you got the money to buy more. Sometimes true Within the past 12 months, t he food you bought just didn't last and you didn't have money to get more. Sometimes true Do you need food for this week? No 08/09/2023 Sex and Gender Information Value Date Recorded Sex Assigned at Male 12/07/2019 10:34 AM EDT Legal Sex Male 5:56 AM EST Gender Identity Male 12/07/2019 10:34 AM EDT Sexual Orientation Straight 12/07/2019 10 :34 AM EDT documented as of this encounter Last Filed Vital Signs Vital Sign Reading Time Taken Comments Blood Pressure 125/70 06/09/2024 7:51 AM EST Pulse 72 06/09/2024 7:51 AM EST Temperature 35.7 C (96.3 F) 06/09/2024 7:51 AM ES T Respiratory Rate 12 06/09/2024 7:51 AM EST Oxygen Saturation - - Inhaled Oxygen Concentration - - Weight 82 kg (180 lb 12.8 oz) 06/09/2024 7:51 AM EST Height 168.9 cm (5' 6.5") 06/09/2024 7:51 AM EST Body Mass Index 28.74 06/09/2024 7:51 AM EST documented in this encounter Progress Notes * Candice Ellington PA-C - 06/09/2024 8:09 AM EST Preoperative Risk Assessment Note NAME: Jm Lambert : 1955 DATE: 06/09/2024 Preoperative Risk Assessment Note Referred by: Dr. Blue Pre-operative evaluation for: lumbar spine surgery. Date of procedure: 06/11/24. Brief History of Present Illness: Jm Lambert 68 year old male has a past medical history of Esophageal reflux, Lumbago, and Otherpsoriasis. Major Risk Factors for Cardiac Events: History of SC, cardiac revascularization, cardiac bypass: No History of cerebrovascular accident or TIA: No History of systolic heart failure: No History of insulin-dependent diabetes: No History of chronic kidney disease (creatinine greater than 2): No Anesthesia History: Anesthesia reaction: No History of surgical complications: Denies Personal history of venous thromboembolic disease: Denies Functional Assessment: They can walk up a flight of stairs, do heavy house work like vacuuming, and grocery shop. The patient's functional status is adequate (equal to 4 METS). Can take care of self, such as eat, dress, or use the toilet=1MET Can walk to block or go up a flight of steps=4 METs Can do heave housework=4-10 METs Can participate in strenuous sports=>10 METs} Obstructive Sleep Apnea: History of TANISHA? No Current active medical problems: I have review and updated past medical history, past surgical history, past family history and social history. Current Outpatient Medications Medication Sig Dispense Refill Spiriva Respimat 2.5 MCG/ACT Inhalation Aerosol Solution (Tiotropium [place] Monohydrate) inhale 2 puffs by mouth and INTO THE LUNGS once daily 12 g 3 Atorvastatin Calcium 20 MG Oral Tablet (Lipitor) take 1 tablet by mouth once daily 100 Tablet 2 Ventolin HFA 108 (90 Base) MCG/ACT Inhalation Aerosol Solution Inhale 2 Puffs by mouth every 4 hours as needed for Wheezing or Dyspnea. 48 g 3 Gabapentin 300 MG Oral Capsule (Neurontin) Take 1 cap in am , 1 cap in afternoon and 2 cap at [id number] Capsule 1 Fluticasone-Salmeterol 250-50 MCG/ACT Inhalation Aerosol Powder Breath Activated (Advair Diskus) Inhale 1 Puff by mouth in the morning and 1 Puff before bedtime. 3 Each 3 Otezla 30 MG Oral Tablet (Apremilast) Take one tablet by mouth twice daily. 60 Tablet 5 Clobetasol Propionate 0.05 % External Foam Apply to elbows and knees nightly as needed 50 g 0 Cyclobenzaprine HCl 10 MG Oral Tablet (Flexeril) TAKE 1 TABLET BY MOUTH AT 1/2 HOUR PRIOR TO BEDTIME NEEDED FOR SPASM 30 Tablet 0 Omeprazole 40 MG Oral Capsule Delayed Release (PriLOSEC) TAKE 1 CAPSULE BY MOUTH EVERY MORNING 90 Capsule 2 No current facility-administered medications for this visit. Review of Systems: Review of Systems Constitutional: Negative for chills and fever. HENT: Negative for sore throat. Respiratory: Negative for cough and shortness of breath. Cardiovascular: Negative for chest pain. Gastrointestinal: Negative for constipation, nausea and vomiting. Genitourinary: Negative for dysuria and hematuria. Neurological: Negative for dizziness and headaches. Physical exam: BP 125/70 (BP Site: Left Arm, BP Position: Sitting, BP Cuff Size: Regular) | Pulse 72 | Temp 96.3 F (35.7 C) (Tympanic) | Resp 12 | Ht 5' 6.5" (1.689 m) | Wt 180 lb 12.8 oz (82 kg) | BMI 28.74 kg/m | BSA 1.96 m Physical Exam Constitutional: General: He is not in acute distress. Appearance: He is not diaphoretic. HENT: Right Ear: Tympanic membrane, ear canal and external ear normal. Left Ear: Tympanic membrane, ear canal and external ear normal. Mouth/Throat: Mouth: Mucous membranes are moist. Pharynx: Oropharynx is clear. Cardiovascular: Rate and Rhythm: Normal rate and regular rhythm. Pulmonary: Effort: Pulmonary effort is normal. Breath sounds: Normal breath sounds. Abdominal: General: Bowel sounds are normal. Palpations: Abdomen is soft. Musculoskeletal: Cervical back: Normal range of motion and neck supple. Skin: General: Skin is warm and dry. Neurological: General: No focal deficit present. Mental Status: He is alert. Mental status is at baseline. I have reviewed most recent labs and EKG. 1. Pre-op exam 2. Thoracic myelopathy 3. Degeneration of intervertebral disc of lumbar region with discogenic back pain Revised Cardiac Risk Index (RCRI): 1. High-risk type of surgery (examples include vascular and any open intraperitoneal or intrathoracic procedures). No 2. History of ischemic heart disease (history of myocardial infarction or positive exercise test, current compliant of chest pain considered to be secondary to myocardial ischemia, use of nitrate therapy, or ECG with pathological Q waves; do not count prior coronary revascularization procedure unless one of the other criteria for ischemic heart disease is present). No 3. History of heart failure. No 4. History of cerebrovascular disease. No 5. Diabetes mellitus requiring treatment with insulin. No 6. Preoperative serum creatinine >2.0. No Pt has revised cardiac index score of No Risk Factors- 0.4% (95% CI: 0.1-0.8) for the surgery scheduled. Patient is intermediate risk for the listed procedure. Candice Ellington PA-C 06/09/2024 8:09 AM documented in this encounter Nursing Notes * Oswaldo Rosas RN - 06/09/2024 7:54 AM EST Chief Complaint Patient presents with pre-op exam Back surgery 06/11/2024 [facility] - Dr. Blue documented in this encounter Plan of Treatment Upcoming Encounters Date Type Department Care Team (Late st Contact Info) Description 07/10/2024 9:40 AM EDT Office Visit General Internal Medicine [facility] [place] [address] [facility] [place] [address] Tiffanie Darden MD [address] [facility] [place] [address] 08/24/2024 8:00 AM EDT Nurse Only Ancillary [facility] [place] [address] [facility] [place] [address] Margarita Nurse Annual Wellness [facility] [address] [facility] [place] [address] 11/12/2024 2:00 PM EDT Telemedicine Dermatology [facility] [address] [place] [address] [place], Pharmacist Dermatology [address] [place] [id number] Health Maintenance Due Date Last Done Comments Cologuard 09/22/1999 Colonoscopy 09/22/1999 Colorectal Cancer Screening 09/22/1999 Fecal Occult Blood Test 09/22/1999 Sigmoidoscopy 09/22/1999 COVID-19 Vaccine ( season) 2023 01/10/2023, 01/21/2022, 03/03/2021, Additional history exists Adult Wellness Visit 08/22/2024 08/23/2023, 08/17/19 23 Depression Screening 08/22/2024 08/23/2023 HbA1c 01/08/2025 01/09/2024, 06/14, 01/08/2023, Additional history exists O2 ASSESSMENT COMPLETED IN PAST YEAR FOR COPD 06/01/2025 06/01/2024 Lipid Panel 01/08/2029 01/09/2024, 06/14, 01/08/2023, Additional history exists DTap/Tdap Vaccines (3 - Td or Tdap) 12/06/2029 12/07/2019, 12/01/2007 Zoster Vaccines Completed 2020, 05/27/2020 Pneumococcal Vaccine: 50+ Years Completed 09/26/2021, 12/07/2019, 12/16/2015 Alpha-1 Antitrypsin Completed 09/27/2021 AAA Screening Completed 08/28/2022, 05/2022, 04/04/2012, Additional history exists Lung Cancer Screening Completed 01/10/2023 Influenza Vaccine (FLU shot) Completed , 12/01/2022, 07/07/2022, Additional history exists HPV (Gardasil) Vaccine Aged Out No lo nger eligible based on patient's age to complete this topic Hepatitis B Vaccine Aged Out No longe r eligible based on patient's age to complete this topic MENINGOCOCCAL (MENACTRA/MENVEO) Aged Out No longer eligible based on patient's age to complete this topic Meningitis B Vaccine (Bexsero/Trumemba) Aged Out No longer eligible based on patient's age to complete this topic documented as of this encounter Medical Devices Implanted Type Area Custom Frame Assembler Device Identifier Shelf Expiration Date Model / Serial / Lot Vectris 1x8 Compact Trial Screening Implanted:Qty: 1 on 10/03/2022 by Marquez Stevenson DO at OR [facility] Bilateral: Back [employer] 08/14/2026 [id number] / / [id number] Trial Screening Lead Kit Implanted:Qty: 1 on 10/03/2022 by Marquez Stevenson DO at OR [facility] Back [employer] 06/15/2026 [id number] / / [id number] documented as of this encounter Visit Diagnoses Diagnosis Pre-op exam- Primary Preoperative examination, unspecified Thoracic myelopathy Spondylosis with myelopathy, thoracic region Degeneration of intervertebral disc of lumbar region with discogenic back pain documented in this encounter Advance Directives Healthcare Agents on File Name Relationship Healthcare Agent Relationshi p Communication Kallie Petra Spouse Health Care Repr esentative (appointed verbally by patient or by statute hierarchy) [email or web address] Care Teams Helicopter Specialist Relationship Specialty Start Date End Date Tiffanie Darden MD [address] [place] [address] PCP - General Internal Medicine 03/23/21 documented as of this encounter
--- OUTSIDE RECORDS SUMMARY | 2024-06-11 06:53 | External Medical Summary | Summary of Care ---
Author Name Unknown Organization [facility] Address [address] [place] [place] [facility] [place] [address] Phone [phone] Care Team Providers Care University Teacher Name Role Phone Tiffanie Darden MD Primary Care Provider [phone] Encounter Details Date Type Department Care Team (Late st Contact Info) Description 06/02/2024 Result Scan Unspecified Department <No scans attached> Allergies No known active allergiesdocumented as of this encounter (statuses as of 06/04/2024) Medications Spiriva Respimat 2.5 MCG/ACT Inhalation Aerosol Solution (Tiotropium [place] Monohydrate)Indica tions:COPD, severity to be determined (HCC) [...] :COPD, group B, by GOLD 2017 classification (HCC) Inhale 1 Puff by mouth in the morning and 1 Puff before bedtime. 3 Each 3 4 Active Otezla 30 MG Oral Tablet (Apremilast) Take one tablet by mouth twice daily. 60 Tablet 5 05/08/2024 9:55 AM EST 4 Active Clobetasol Propionate 0.05 [...] as of this encounter (statuses as of 06/04/2024) Active Problems Problem Noted Date Diagnosed Date [...] as of this encounter (statuses as of 06/04/2024) Resolved Problems Problem Noted Date Diagnosed Date Resolved Date Food insecurity 12/25/2021 04/25/2023 Overview: Per [facility] Protocol COPD, severity to be determined 03/23/2021 10/26/2021 Overview: Per COPD GOLD Classification Food insecurity 11/26/2017 09/22/2020 Overview: Per [facility] Protocol Left renal mass 10/08/2012 05/12/2014 S/P cholecystectomy 06/09/2012 01/09/20 23 Lumbago 07/18/2000 11/04/2017 UNSPECIFIED GASTRITIS AND GA STRODUODENITIS WITHOUT MENTION OF HEMORRHAGE 03/18/2020 documented as of this encounter (statuses as of 06/04/2024) Immunizations Name Administration Dates Next Due COVID-19 mRNA, LNP-s, No Pre serve, 2-Dose Series ([employer]) 03/03/2021,08/31/2020,08/10/2020 COVID-19, MRNA-LNP, PF, 30 M CG/0.3 mL, 12 YRS AND ABOVE, IM ([employer]) 01/10/2023 Covid-19, Mrna, Lnp-s, Pf, B ivalent, 30 Mcg, IM, 12 yrs and above ([employer]) 01/21/2022 PPD 03/26/2012 Pneumococcal Conjugate Vacc, 13 [...] 0 05/1971 - 05/2022 Smokeless Tobacco: Never Comments:smoker since age 15 Alcohol Use Standard [...] AM EDT documented as of this encounter Plan of Treatment Upcoming Encounters Date Type Department Care Team (Late st Contact Info) Description 06/17/2024 8:20 AM EST Office Visit General Internal Medicine [facility] [place] [address] [place] [address] Tiffanie Darden MD [address] [place] [address] 07/10/2024 9:40 AM EDT Office Visit General Internal Medicine [facility] [place] [address] [place] [address] Tiffanie Darden MD [address] [place] [address] 08/24/2024 8:00 AM EDT Nurse Only Ancillary [facility] [place] [address] [place] [address] Margarita Nurse Annual Wellness [facility] [address] [facility] [place] [address] 11/12/2024 2:00 PM EDT [place]medicine [place] [address] [place], Pharmacist Dermatology [address] [place] [id number] Health Maintenance Due Date Last Done Comments [...] this encounter Medical Devices Implanted Type Area Waterproof Bag Sewer Device Identifier Shelf Expiration Date Model / Serial / Lot Vectris 1x8 Compact Trial Screening Implanted:Qty: 1 on 10/03/2022 by Marquez Stevenson DO at OR [facility] Bilateral: Back [employer] 08/14/2026 [id number] / / [id number] Trial Screening Lead Kit Implanted:Qty: 1 on 10/03/2022 by Marquez Stevenson DO at OR [facility] Back [employer] 06/15/2026 [id number] / / [id number] documented as of this encounter Procedures Procedure Name Priority Date/Time Associated Diagnosis Comments EKG SCANNED RESULT 06/02/2024 documented in this encounter Results * EKG SCANNED RESULT (06/02/2024) 06/02/2024 us No Physician Data Unknown EKG Final Result documented in this encounter Advance Directives Healthcare Agents on File Name Relationship Healthcare Agent Relationshi p Communication Kallie Lambert Spouse Health Care Repr esentative (appointed verbally by patient or by statute hierarchy) [email or web address] Care Teams University Teacher Relationship Specialty Start Date End Date Tiffanie Darden MD [address] [place] [address] PCP - General Internal Medicine 03/23/21 documented as of this encounter
--- OUTSIDE RECORDS SUMMARY | 2024-06-11 06:53 | External Medical Summary | Summary of Care ---
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 Name Role Phone Tiffanie Darden MD Primary Care Provider [phone] Encounter Details Date Type Department Care Team (Late st Contact Info) Description 06/04/2024 Orders Only General Internal Medicine [facility] [address] [place] [address] Tiffanie Darden MD [address] [place] [address] Allergies No known active allergiesdocumented as of this encounter (statuses as of 06/04/2024) Medications Spiriva Respimat 2.5 MCG/ACT Inhalation Aerosol Solution (Tiotropium Nixon Monohydrate)Indica tions:COPD, severity to be determined (HCC) [...] :COPD, group B, by GOLD 2017 classification ([facility]) Inhale 1 Puff by mouth in the [...] Date Food insecurity 12/25/2021 04/25/2023 Overview: Per [facility] Protocol COPD, severity to be determined 03/23/2021 10/26/2021 Overview: Per COPD GOLD Classification Food insecurity 11/26/2017 09/22/2020 Overview: Per [facility] Protocol Left renal mass 10/08/2012 05/12/2014 S/P cholecystectomy 06/09/2012 01/09/20 23 Lumbago 07/18/2000 11/04/2017 UNSPECIFIED GASTRITIS AND GA STRODUODENITIS WITHOUT MENTION OF HEMORRHAGE 03/18/2020 documented as of this encounter (statuses as of 06/04/2024) Immunizations Name Administration Dates Next Due COVID-19 mRNA, LNP-s, No Pre serve, 2-Dose Series ([employer]) 03/03/2021,08/31/2020,08/10/2020 COVID-19, MRNA-LNP, PF, 30 M CG/0.3 mL, 12 YRS AND ABOVE, IM ([facility]) 01/10/2023 Covid-19, Mrna, Lnp-s, Pf, B ivalent, [...] AM EST Office Visit General Internal Medicine [facility] [place] [address] [place] [address] Tiffanie Darden MD [address] [place] [address] 07/10/2024 9:40 AM EDT Office Visit General Internal Medicine [facility] [place] [address] [place] [address] Tiffanie Darden MD [address] [place] [address] 08/24/2024 8:00 AM EDT Nurse Only Ancillary [facility] Margarita [place] [address] [place] [address] Margarita Nurse Annual Wellness [facility] [address] [place] [address] 11/12/2024 2:00 PM EDT Telemedicine Dermatology Erum [place]well [address] [id number] Erum, Pharmacist Dermatology [address] [place] [id number] Health Maintenance Due Date Last Done Comments [...] Antitrypsin Completed 09/27/2021 AAA Screening Completed 08/28/2022, 05/0 05/2022, 04/04/2012, Additional history exists Lung Cancer [...] this encounter Medical Devices Implanted Type Area Unitizer Device Identifier Shelf Expiration Date Model / Serial / Lot Vectris 1x8 Compact Trial Screening Implanted:Qty: 1 on 10/03/2022 by Marquez Stevenson DO at OR [facility] Bilateral: Back Medtronic 08/14/2026 [id number] / / [id number] Trial Screening Lead Kit Implanted:Qty: 1 on 10/03/2022 by Marquez Stevenson, at OR [facility] Back Medtronic 06/15/2026 [id number] / / [id number] documented as of this encounter Procedures Procedure Name Priority Date/Time Associated Diagnosis Comments XR CHEST 2 VIEWS Routine 06/02/2024 CHEMISTRY-OUTSIDE Routine 06/02/2024 documented in this encounter Results * (ABNORMAL) CHEMISTRY-OUTSIDE (06/02/2024) Not all results display below - see scan for full detail OUTSIDE LAB (SEE SCANNED REPORT) Comment:SCAN INCLUDES: CBCD, PT/INR, PTT, BMP, UA CREATININE 1.13 0.6 - 1.4 MG/DL OUTSIDE LAB (SEE SCANNED REPORT) EGFR 70.36 ML/MIN OUTSIDE LA B (SEE SCANNED REPORT) POTASSIUM 4.0 3.5 - 5.1 MMOL/L OUTSIDE LAB (SEE SCANNED REPORT) GLUCOSE 113(A) 70 - 99 MG/DL OUTSIDE LAB (SEE SCANNED REPORT) HOURS FASTING OUTSID E LAB (SEE SCANNED REPORT) TRIGLYCERIDES-OU TSIDE LAB OUTSIDE LAB (SEE SCANNED REPORT) CHOLESTEROL-OUTS [place] [facility] OUTSIDE LAB (SEE SCANNED REPORT) HDL-OUTSIDE LAB OUTS [place] [facility] (SEE SCANNED REPORT) CHOL/HDL RATIO-OUTSIDE LAB OUTSIDE LAB (SEE SCANNED REPORT) LDL (CALCULATED)-OUT SIDE LAB OUTSIDE LAB (SEE SCANNED REPORT) LDL (DIRECT MEASURE)-OUTSIDE LAB OUTSIDE LAB (SEE SCANNED REPORT) HEMOGLOBIN, A0L-[place] LAB OUTSIDE LAB (SEE SCANNED REPORT) PHOSPHORUS-OUTSI DE LAB OUTSIDE LAB (SEE SCANNED REPORT) PTH-OUTSIDE LAB OUTS [place] [facility] (SEE SCANNED REPORT) MICROALBUMIN RATIO-OUTSIDE LAB OUTSIDE LAB (SEE SCANNED REPORT) PROTEIN, UA-OUTSIDE LAB NEGATIVE NEGATIVE OUTSIDE LAB (SEE SCANNED REPORT) HGB 13.2(A) 14.0 - 18.0 G/DL OUTSIDE LAB (SEE SCANNED REPORT) 06/02/2024 us Javed Blue DO LABORATORY Fin al Result OUTSIDE LAB (SEE SCANNED REPORT) * XR CHEST 2 VIEWS (06/02/2024) Anatomical Region Laterality Modality Chest Other 06/02/2024 us Javed Blue DO RADIOLOGY (RAD GENE RAL) Final Result documented in this encounter Advance Directives Healthcare Agents on File Name Relationship Healthcare Agent Relationshi p Communication Kallie Petra Spouse Health Care Repr esentative (appointed verbally by patient or by statute hierarchy) [email or web address] Care Teams Solar Designer/Installer Relationship Specialty Start Date End Date Tiffanie Darden MD [address] [place] [address] PCP - General Internal Medicine 03/23/21 documented as of this encounter
[2024-06-11] MEDS: ACETAMINOPHEN 500 MG TAB PO SCH (07:05)
[2024-06-11] MEDS: CeleBREX 200 MG CAP PO SCH (07:05)
[2024-06-11] MEDS: LR 15ML/HR IV SCH (07:06)
[2024-06-11] MEDS: LR 60ML/HR IV SCH (07:06)
[2024-06-11] MEDS ORDERED: ONDANSETRON INJ 2 MG/ML 2 ML VIAL IV PRN ×2 (07:33→12:45)
[2024-06-11] MEDS ORDERED: ePHEDrine sulfate 50 MG/ML AMP IV PRN ×2 (07:33→11:43)
[2024-06-11] MEDS ORDERED: ATROPINE SULFATE 0.1 MG/ML 10ML SYR IV PRN ×2 (07:33→11:43)
--- NOTE | 2024-06-11 07:39 | History & Physical Bridge Note ---
Date of Service June 11, 2024 History & Physical Bridge Note I have examined the patient, reviewed the History & Physical and in the interval since the performance of the History & Physical I have noted the following changes of clinical significance: no changes noted
--- NOTE | 2024-06-11 07:40 | History & Physical Report ---
Date of Service June 11, 2024 Assessment & Plan (1) Two-level lumbosacral spondylosis with radiculopathy: Plan: T12-L2 decompression and fusion History of Present Illness Chief Complaint: Back and leg pain Primary Care Provider: Tiffanie Darden MD This is a 68-year-old male that presents for persistent back and leg pain over the course of nonoperative care is here for surgical invention. Allergies Allergy/AdvReac Type Severity Reaction Status Date / Time No Known Allergies Allergy Unknown Verified 06/11/24 06:40 Home Medications Medication Instructions Recorded Confirmed Type omeprazole 40 mg capsule,delayed 40 mg PO QAM 11/26/19 06/11/24 History release acetaminophen 500 mg tablet 1,000 mg PO QID PRN Pain 05/22/24 06/11/24 History albuterol sulfate 90 mcg/actuation 2 puff inhalation Q4H PRN asthma 05/22/24 06/11/24 History aerosol inhaler apremilast 30 mg tablet (Otezla) 30 mg PO BID 05/22/24 06/11/24 History gabapentin 300 mg capsule 300 mg PO UD 05/22/24 06/11/24 History fluticasone 250 mcg-salmeterol 50 See Rx Instructions .Route .COMPLEX 06/11/24 06/11/24 History mcg/dose blistr powdr for inhalation tiotropium bromide 2.5 See Rx Instructions .Route .COMPLEX 06/11/24 06/11/24 History mcg/actuation mist for inhalation (Spiriva Respimat) Past Med/Surg History Problem List (Updated 06/11/24 @ 07:40 by Javed Blue DO) Two-level lumbosacral spondylosis with radiculopathy Encounter for pre-operative examination Leg pain Lumbar stenosis with neurogenic claudication Medical History Arthritis Chronic back pain COPD (chronic obstructive pulmonary disease) has rescue inhaler, has not used for a few months, 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 blue in [place], advised to bring remote DOS , medtronic Surgical History History of cataract surgery b/l History of herniorrhaphy History of lumbar surgery total of 5 surgeries, has spinal cord stim implanted - medtronic Family History Other No significant family history Social History Smoking Status: Former smoker Tobacco Type: Cigarettes Smoking End Date: may 2022; Second Hand Exposure: No; Do You Dip or Chew Tobacco: No; Tobacco Cessation Education Requested by Patient: No Hx Alcohol Use: No Hx Substance Use: No Preferred Language: Uzbek Communication Ability: Effective Visual Impairment: No Limitations Pellet Press Operator Required: No Beliefs That Will Affect Care: None marital status: Current Living Situation: Spouse Other Information That Helps Us Care for You: No Feels Safe at Home: Yes Safety Concerns: Feels Safe At This Time Assistive Devices: Glasses Physical Exam Physical Exam: Patient is alert and oriented heart regular rhythm lungs clear Results & Data Results & Data Vital Signs (Past 12 Hours) Vital Signs Temp Pulse Resp BP Pulse Ox O2 Del Method 06/11/24 06:52 36.6 C 76 20 126/84 95 Room Air
[2024-06-11] MEDS: ceFAZolin 2000MG 2,000 MG/15 ML SYR IV SCH ×2 (07:48→15:45)
[2024-06-11] MEDS: BUPIVACAINE/EPINEPHRINE 0.25% 1:200,000 30 ML VIAL ONE (08:30)
[2024-06-11] MEDS: ceFAZolin 330 MG/ML 1 GM VIAL ONE (08:31)
[2024-06-11] MEDS ORDERED: PHENYLEPHRINE 100MCG/ML 5ML SYR ONE (08:40)
[2024-06-11] MEDS ORDERED: SUGAMMADEX SODIUM 200 MG/2 ML VIAL IV ONE (09:12)
[2024-06-11] MEDS: FLOSEAL HEMOSTATIC MATRIX 10ML TOP ONE (09:14)
--- NOTE | 2024-06-11 09:25 | Operative Report ---
Post Operative Report Pre & Post Diagnosis Operation Date: 06/11/24 07:45 Pre-Op Diagnosis: Lumbar spondylosis with radiculopathy Lumbar spinal stenosis Lumbar degenerative disc disease Post-Op Diagnosis: Same I identified the patient and participated in the time-out.: Yes Procedure Operation Date: 06/11/24 07:45 Actual Procedures #1 removal of posterior instrumentation L2-L3. #2 exploration of fusion L2-L3. #3 lumbar decompression bilateral medial facetectomies and foraminotomies L1-L2. #4 posterior spinal fusion T12-L2. #5 placement of Soriano rods and screws L1- L3. #6 interbody fusion L1-L2. #7 placement of Spira 9 x 26 mm at L1-L2. #8 placement locally harvested morselized autograft in the posterior gutters. #9 placement fuse collagen sponge, with Koros in the posterior gutters T12-L2 with os design and interbody space. #10 placement of versa wrap over the exposed dura. Surgeon Javed Blue, Vp Integrity Emma Gardner Estimated Blood Loss 150 Findings Consistent with Post-Op Diagnosis Specimens None Indications This is a 68-year-old male unknown to me the presents with marked client status continued back and leg pain and here for surgical intervention. Description of Procedure Patient is met with identified informed consent obtained. Patient was then taken to the operative suite underwent intubation placed in a prone position on the Kevin table on top of the Timothy frame. All bony prominences well-padded eyes inspected to ensure no external pressure placed upon the. This point the thoracolumbar spine was prepped and draped in a sterile fashion. Sharp dissection with the assistance of Bovie cautery performed down to and exposing the lamina transverse processes of T12-L1 and instrumentation at L2-L3. Then proceeded move the hardware bilaterally at L2-L3. Explored the fusion mass noting it to be mature and intact. Informed complete laminectomy of L1 with bilateral medial facetectomies and foraminotomies addressing severe subarticular and foraminal stenosis. Pedicle screws then placed in L1-L2-L3 bilaterally with assistance of fluoroscopy in the process leonie contoured and placed. By way of a transforaminal portion of right complete discectomy of L1-L2 was performed endplates corrected to subcortical bleeding bone and a 9 x 26 mm spiral cage filled with os design bone graft tapped into position. The rods were then locked in a final position bilaterally. The transverse processes and facets of T12-L1 and L2 burred to subcortical bleeding bone. Infuse collagen sponge plan with Koros and local autograft placed in the posterior lateral gutters. Versa wrap placed over the exposed dura. 15 round RANDI drain inserted. The incision was then closed with 1 Vicryl the fascia 2-0 Vicryl subcutaneously and 4 Monocryl for final skin closure. Steri-Strips sterile dressing placed. Patient waken taken PACU stable addition. Please note spinal cord monitoring was utilized at the procedure no changes noted. Emma Gardner was present at the entire surgery involved the patient positioning complex portion of the surgery and final skin closure. I attest to the content of the Intraoperative Record and any orders documented therein. Any exceptions are noted below.
--- NOTE | 2024-06-11 09:53 | Fluoroscopy Report ---
FL lumbar spine 2-3V CLINICAL HISTORY: T12-L2 DECOMPRESSION AND FUSION COMPARISON STUDY: None FLUOROSCOPY TIME: 16 seconds FLUOROSCOPY IMAGES: 2 EXPOSURE DOSE: 8 mGy FINDINGS: Fluoroscopy was provided for T12-L2 metallic fusion. IMPRESSION: Intraoperative fluoroscopy. ACT 112: Negative or not required by law. Electronically signed by: Rom Aldrich M.D. 06/11/2024 9:52 AM
[2024-06-11] MEDS: fentaNYL citrate PF 100 MCG/2 ML VIAL IV PRN ×2 (10:42→11:41)
--- NOTE | 2024-06-11 11:05 | Anesthesiology Progress Note ---
Date of Service June 11, 2024 Anesthesia Post Procedure Vital Signs Vital Signs: Temp Pulse Pulse Resp BP Pulse Ox O2 Del Method 06/11/24 10:55 67 12 128/65 95 Nasal Cannula 06/11/24 10:40 97.3 F L 65 15 116/64 97 Nasal Cannula 06/11/24 10:30 69 14 119/65 97 Nasal Cannula 06/11/24 10:20 73 19 120/70 94 Nasal Cannula 06/11/24 10:10 74 14 125/69 92 Room Air 06/11/24 10:00 80 15 126/70 100 Oxymask 06/11/24 09:50 79 13 132/74 100 Oxymask 06/11/24 09:40 87 13 148/73 H 96 Oxymask 06/11/24 09:39 97.2 F L 91 H 16 150/79 H 97 Oxymask 06/11/24 06:52 97.9 F 76 20 126/84 95 Room Air O2 Flow Rate 06/11/24 10:55 2 06/11/24 10:40 2 06/11/24 10:30 2 06/11/24 10:20 2 06/11/24 10:10 06/11/24 10:00 3 06/11/24 09:50 6 06/11/24 09:40 6 06/11/24 09:39 6 06/11/24 06:52 Pain Intensity Bilateral Back: Pain Intensity: 5 Transfer of Care Handoff Completed per policy Notes Mental Status: alert / awake / arousable and participated in evaluation Patient Amnestic to Procedure: Yes Nausea / Vomiting: adequately controlled Pain: adequately controlled Airway Patency, RR, SpO2: stable & adequate BP & HR: stable & adequate Hydration State: stable & adequate Anesthetic Complications: no major complications apparent and Pt Satisfied with anesthetic care
[2024-06-11] MEDS ORDERED: fentaNYL citrate PF 100 MCG/2 ML VIAL IV PRN (11:44)
[2024-06-11] MEDS ORDERED: bisacodyL 10 MG SUPP PR PRN (12:45)
[2024-06-11] MEDS ORDERED: PROMETHAZINE 12.5 MG/50.5 ML BAG IV PRN (12:45)
[2024-06-11] MEDS ORDERED: NALOXONE HCL 0.4 MG/1 ML VIAL/CARP IV PRN (12:45)
[2024-06-11] MEDS ORDERED: MAGNESIUM HYDROXIDE SUSP 30 ML UDC PO PRN (12:45)
[2024-06-11] MEDS ORDERED: HYDROmorphone INJ 1 MG/ML SYRINGE IV PRN (12:45)
[2024-06-11] MEDS ORDERED: ACETAMINOPHEN 500 MG TAB PO PRN (12:45)
[2024-06-11] MEDS ORDERED: METOCLOPRAMIDE HCL INJ 5 MG/ML 2 ML VIAL IV PRN (12:45)
[2024-06-11] MEDS ORDERED: ONDANSETRON 4 MG OD TAB PO PRN (12:45)
[2024-06-11] MEDS ORDERED: LORazepam 0.5 MG TAB PO PRN (12:45)
[2024-06-11] MEDS ORDERED: DO NOT ADMINISTER FLU VACCINE PRN (12:45)
[2024-06-11] MEDS ORDERED: ALBUTEROL HFA 8 GM INHALER INH PRN (12:45)
[2024-06-11] MEDS ORDERED: hydrOXYzine HCl 25 MG TAB PO PRN (12:45)
[2024-06-11] MEDS ORDERED: DO NOT ADMINISTER PNEUMOCOCCAL VACCINE PRN (12:45)
[2024-06-11] MEDS ORDERED: diphenhydrAMINE Capsule 25 MG CAP PO PRN (12:45)
[2024-06-11] MEDS ORDERED: SOD PHOSPHATE/SOD BIPHOSPHATE ENEMA 132 ML BTL PR PRN (12:45)
[2024-06-11] MEDS ORDERED: ALUMINUM/MAGNESIUM SUSP 30 ML UDC PO PRN (12:45)
[2024-06-11] MEDS ORDERED: ACETAMINOPHEN 1,000 MG/100 ML VIAL IV PRN (12:45)
[2024-06-11] MEDS ORDERED: LORazepam 2 MG/1 ML VIAL IV PRN (12:45)
[2024-06-11] MEDS ORDERED: FAMOTIDINE 20 MG TAB PO PRN (12:45)
[2024-06-11] MEDS ORDERED: INFLUENZA VACC TS2024-25(65y+)/PF (IIV3) 0.5mL Syr IM ONE (13:00)
[2024-06-11] MEDS: GABAPENTIN 300 MG CAP PO SCH ×2 (13:02→20:42)
[2024-06-11] MEDS: fentaNYL citrate PF 100 MCG/2 ML VIAL ONE (13:03)
[2024-06-11] MEDS: HYDROmorphone INJ 0.5 MG/0.5 ML SYR IV PRN (13:06)
[2024-06-11] MEDS: oxyCODONE HCL IR 5 MG TAB (IMMEDIATE RELEASE) PO PRN (14:43)
[2024-06-11] MEDS: UMECLIDINIUM BROMIDE 62.5MCG/BLISTER 7 PUFFS/INHALER INH SCH (15:46)
[2024-06-11] MEDS: FLUTICASONE/VILANTEROL 100/25MCG 14 PUFFS/INHALER INH SCH (15:46)
--- NOTE | 2024-06-11 15:48 | Consultation ---
Date of Consultation June 11, 2024 Assessment & Plan (1) S/P spinal surgery: (2) Lumbar stenosis with neurogenic claudication: This is a 68yo F with a PMH of COPD, HLD, psoriasis who underwent removal of posterior instrumentation L2-L3, exploration of fusion L2-L3, lumbar decompression bilateral medial facetectomies and foraminotomies L1-L2 and posterior spinal fusion T12-L2 by Dr. Blue on 06/11/24. POD#0 s/p removal of posterior instrumentation L2-L3, exploration of fusion L2- L3, lumbar decompression bilateral medial facetectomies and foraminotomies L1-L2 and post. spinal fusion T12-L2 by Dr. Blue. Per ortho for pain control, wound care, anticoagulation and activities Monitor H&H (pre-op hgb 13.2, EBL 150ml) Continue incentive spirometry, PT/OT when appropriate (3) Psoriasis: Apremilast held by primary, continue clobetasol BID PRN (4) COPD (chronic obstructive pulmonary disease): Stable. Continue Spiriva, Advair, Ventolin PRN (5) HLD (hyperlipidemia): Continue statin (6) GERD (gastroesophageal reflux disease): Continue omeprazole DVT Ppx: SCDs for now Code status: FULL PCP: Adelso Dispo: Admitted to med/surg, discharge per primary service Patient seen in collaboration with Dr. Rondon. Please see addendum. I spent a total of 50 minutes coordinating, documenting, and providing care for this patient excluding time spent in the performance of separately billed services or time spent by another provider/QHP. Thank you for this consultation. We will follow the patient with you during their hospital stay. You can reach a member of the [facility]11 via [employer]. Supervising Physician Co-Signing Physician Notes Patient seen and examined independently. Discussed with above provider. Patient is sitting up on the chair; not in any distress He denies any fever, chills, chest pain, shortness of breath or abdominal pain. He also denies any chest pain. His vital signs are stable and he is saturating well on room air. Continue pain control, PT OT. Rest per primary I have reviewed the advanced practitioner's documentation, and I agree with, and take responsibility for the plan of care I spent a total of 20 minutes coordinating, documenting, and providing care for this patient excluding time spent in the performance of separately billed services. All of the aforementioned completed while collaborating with the assigned advanced practitioner for a full treatment plan History of Present Illness Requesting Physician: Dr. Blue Reason for Consultation: post op med mgmt Attending Physician: Javed Blue DO History of Present Illness This is a 68yo F with a PMH of COPD, HLD, psoriasis who is POD#0 s/p removal of posterior instrumentation L2-L3, exploration of fusion L2-L3, lumbar decompression bilateral medial facetectomies and foraminotomies L1-L2 and posterior spinal fusion T12-L2 by Dr. Blue. Patient feeling well postoperatively. Has some surgical site discomfort but denies any lower extremity pain or paresthesias. Is already sitting up in bedside chair. No fever, chills, lightheadedness, chest pain, shortness of breath, nausea, vomiting, abdominal pain, dysuria, diarrhea or constipation. Receives primary care at [facility]. Allergies Allergy/AdvReac Type Severity Reaction Status Date / Time No Known Allergies Allergy Unknown Verified 06/11/24 06:40 Home Medications Medication Instructions Recorded Confirmed Type omeprazole 40 mg capsule,delayed 40 mg PO QAM 11/26/19 06/11/24 History release acetaminophen 500 mg tablet 1,000 mg PO QID PRN Pain 05/22/24 06/11/24 History albuterol sulfate 90 mcg/actuation 2 puff inhalation Q4H PRN asthma 05/22/24 06/11/24 History aerosol inhaler apremilast 30 mg tablet (Otezla) 30 mg PO BID 05/22/24 06/11/24 History gabapentin 300 mg capsule 300 mg PO UD 05/22/24 06/11/24 History fluticasone 250 mcg-salmeterol 50 See Rx Instructions .Route .COMPLEX 06/11/24 06/11/24 History mcg/dose blistr powdr for inhalation oxycodone 5 mg tablet 5 mg PO Q6H PRN pain #30 tabs 06/11/24 Rx tiotropium bromide 2.5 See Rx Instructions .Route .COMPLEX 06/11/24 06/11/24 History mcg/actuation mist for inhalation (Spiriva Respimat) tramadol 50 mg tablet 50 mg PO Q6H PRN pain, moderate 06/11/24 Rx #30 tabs Patient History Medical History (Updated 06/11/24 @ 16:17 by Nancy Cooper PA-C) HLD (hyperlipidemia) Spinal cord stimulator status (2022) placed by dr. 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 Degenerative disc disease Arthritis GERD (gastroesophageal reflux disease) well controlled and stable Surgical History History of lumbar surgery total of 5 surgeries, has spinal cord stim implanted - medtronic History of herniorrhaphy History of cataract surgery b/l Family History (Updated 06/11/24 @ 16:14 by Nancy Cooper PA-C) Other No significant family history Denies family history of Diabetes Hypertension Stroke Social History Smoking Status: Former smoker Tobacco Type: Cigarettes Smoking End Date: may 2022; Second Hand Exposure: No; Do You Dip or Chew Tobacco: No; Tobacco Cessation Education Requested by Patient: No Hx Alcohol Use: No Hx Substance Use: No Preferred Language: Finnish Communication Ability: Effective Visual Impairment: No Limitations Coder Operator Required: No Beliefs That Will Affect Care: None marital status: Current Living Situation: Spouse Other Information That Helps Us Care for You: No Feels Safe at Home: Yes Safety Concerns: Feels Safe At This Time Assistive Devices: Glasses Review of Systems Review of Systems: At least ten systems reviewed and negative except as noted in the HPI. Physical Exam Physical Exam: General Appearance: WD/WN, vitals as above, NAD, sitting upin bedside chair, pleasant, conversing easily Head: normocephalic, atraumatic Eyes: normal inspection ENT: external ear and nose normal, oropharynx normal Neck: normal visual inspection Respiratory: normal respiratory effort, lungs clear to auscultation, no wheeze, rales, rhonchi Cardiovascular: regular rate, rhythm, normal peripheral pulses, no BLE edema. Vessels: no JVD Chest: normal inspection of chest Abdomen/GI: normal bowel sounds, soft, nontender, no hepatosplenomegaly : [place] Extremities/Musculoskeletal: + Spinal dressing c/d/i. RANDI drain visualized. No cyanosis or clubbing, extremities motor strength 5/5 Neurologic: PERRL, EOMI, CN's II-XI intact bilaterally and moves all extremities Psychiatric: A+Ox3, euthymic affect Skin: no rashes, normal color, warm/dry Results & Data Vital Signs (Past 12 Hours) Vital Signs Temp Pulse Pulse Resp BP Pulse Ox O2 Del Method 06/11/24 14:46 36.5 C 87 19 126/74 96 Room Air 06/11/24 13:48 36.7 C 98 H 19 113/64 94 Room Air 06/11/24 12:45 36.6 C 88 18 132/72 93 Room Air 06/11/24 12:00 77 15 122/72 96 Nasal Cannula 06/11/24 11:50 78 15 127/78 94 Nasal Cannula 06/11/24 11:40 73 15 127/63 96 Nasal Cannula 06/11/24 11:30 83 18 127/78 97 Nasal Cannula 06/11/24 11:15 70 12 112/63 97 Nasal Cannula 06/11/24 10:55 67 12 128/65 95 Nasal Cannula 06/11/24 10:40 36.3 C L 65 15 116/64 97 Nasal Cannula 06/11/24 10:30 69 14 119/65 97 Nasal Cannula 06/11/24 10:20 73 19 120/70 94 Nasal Cannula 06/11/24 10:10 74 14 125/69 92 Room Air 06/11/24 10:00 80 15 126/70 100 Oxymask 06/11/24 09:50 79 13 132/74 100 Oxymask 06/11/24 09:40 87 13 148/73 H 96 Oxymask 06/11/24 09:39 36.2 C L 91 H 16 150/79 H 97 Oxymask 06/11/24 06:52 36.6 C 76 20 126/84 95 Room Air O2 Flow Rate 06/11/24 14:46 06/11/24 13:48 06/11/24 12:45 06/11/24 12:00 4 06/11/24 11:50 4 06/11/24 11:40 2 06/11/24 11:30 2 06/11/24 11:15 2 06/11/24 10:55 2 06/11/24 10:40 2 06/11/24 10:30 2 06/11/24 10:20 2 06/11/24 10:10 06/11/24 10:00 3 06/11/24 09:50 6 06/11/24 09:40 6 06/11/24 09:39 6 06/11/24 06:52 Laboratory Results 06/02/24: Pre-op hgb 13.2 Diagnostic Findings Lumbar Spine X-Ray 06/11/24 07:45 FL lumbar spine 2-3V CLINICAL HISTORY: T12-L2 DECOMPRESSION AND FUSION COMPARISON STUDY: None FLUOROSCOPY TIME: 16 seconds FLUOROSCOPY IMAGES: 2 EXPOSURE DOSE: 8 mGy FINDINGS: Fluoroscopy was provided for T12-L2 metallic fusion. IMPRESSION: Intraoperative fluoroscopy. ACT 112: Negative or not required by law. Electronically signed by: Rom Aldrich M.D. 06/11/2024 9:52 AM
[2024-06-11] MEDS: DOCUSATE SODIUM/SENNA 50/8.6MG TAB PO SCH (20:42)
[2024-06-11] MEDS: traMADol HCL 50 MG TABLET PO PRN (20:46)
[2024-06-12] MEDS: POLYETHYLENE (MIRALAX) 17 GM PACK PO SCH (05:39)
[2024-06-12 07:17] LABS: Basophils # (auto) 0.01 K/uL (0.00-0.20); Basophils % (auto) 0.1 %; Eosinophils # (auto) 0.02 K/uL (0.00-0.50); Eosinophils % (auto) 0.2 %; Hematocrit (blood only) 32.6 % (42.0-52.0); Hemoglobin 11.1 g/dl (14.0-18.0); Immature Granulocytes # (auto) 0.03 K/uL (0.01-0.20); Immature Granulocytes % (auto) 0.2 %; Lymphocytes # (auto) 3.11 K/uL (1.20-3.40); Lymphocytes % (auto) 23.5 %; Mean Corpuscular Hemoglobin 31.1 pg (25.0-34.0); Mean Corpuscular Volume 91.3 fL (80.0-100.0); Mean Platelet Volume 9.1 fL (9.4-12.4); Monocytes # (auto) 1.43 K/uL (0.11-0.59); Monocytes % (auto) 10.8 %; Neutrophils # (auto) 8.61 K/uL (1.40-6.50); Neutrophils % (auto) 65.2 %; Platelet Count 261 K/uL (130-400); RDW Coefficient of Variation 12.6 % (11.5-14.5); RDW Standard Deviation 41.7 fL (36.4-46.3); Red Blood Count 3.57 M/uL (4.70-6.10); White Blood Count 13.21 K/ul (4.8-10.8)
--- NOTE | 2024-06-12 07:32 | Hospitalist Progress Note ---
Date of Service June 12, 2024 Assessment & Plan (1) S/P spinal surgery: (2) Lumbar stenosis with neurogenic claudication: Plan: This is a 68yo F with a PMH of COPD, HLD, psoriasis who underwent removal of posterior instrumentation L2-L3, exploration of fusion L2-L3, lumbar decompression bilateral medial facetectomies and foraminotomies L1-L2 and posterior spinal fusion T12-L2 by Dr. Blue on 06/11/24. POD#1 s/p removal of posterior instrumentation L2-L3, exploration of fusion L2- L3, lumbar decompression bilateral medial facetectomies and foraminotomies L1-L2 and post. spinal fusion T12-L2 by Dr. Blue. Per ortho for pain control, wound care, anticoagulation and activities Continue incentive spirometry, PT/OT when appropriate Post op blood loss anemia Hgb 11.1 today (pre-op hgb 13.2, EBL 150ml) Asymptomatic, no indication for transfusion Repeat CBC tomorrow (3) Psoriasis: Plan: Apremilast held by primary, continue clobetasol BID PRN (4) COPD (chronic obstructive pulmonary disease): Plan: Stable. Continue Spiriva, Advair, Ventolin PRN (5) HLD (hyperlipidemia): Plan: Continue statin (6) GERD (gastroesophageal reflux disease): Plan: Continue omeprazole DVT Ppx: SCDs for now Code status: FULL PCP: Adelso Dispo: Admitted to med/surg, discharge per primary service I spent a total of 35 minutes coordinating, documenting, and providing care for this patient excluding time spent in the performance of separately billed services or time spent by another provider/QHP. Thank you for this consultation. We will follow the patient with you during their hospital stay. You can reach a [facility] via [employer]. Admission and Anticipated Discharge Date Admission Date: June 11, 2024 Subjective Seen and examined in 317-1. Feeling well today, playing solitaire. Surgical site discomfort is mild, no pain or paresthesias of BLE. Tolerating diet, passing flatus. No F/C, CP, SOB, N/V or abd pain. Sheehan to be removed when he works with PT/OT today. Review of Systems Review of Systems: At least ten systems reviewed and negative except as noted in the HPI. Physical Exam Physical Exam: Gen: WD/WN, NAD, sitting up in bed, A&Ox3 HEENT: Normocephalic, atraumatic, conjunctivae moist, sclerae anicteric, mucous membranes moist Lung: Clear to Auscultation bilaterally, no wheezes/rales/rhonchi Heart: Regular rate, regular rhythm Abdomen: Soft, NT, ND +BS x 4 : Sheehan Extremities: + Spinal dressing c/d/i. RANDI drain visualized, no edema Skin: Warm, no rash Results & Data Results & Data Vital Signs (Past 12 Hours) Vital Signs Temp Pulse Resp BP Pulse Ox O2 Del Method 06/12/24 04:32 36.7 C 82 18 103/59 L 95 Room Air 06/11/24 23:59 36.6 C 75 16 108/64 95 Room Air Laboratory Results Short CBC 06/12/24 Range/Units 06:34 WBC 13.21 H (4.8-10.8) K/ul Hgb 11.1 L (14.0-18.0) g/dl Hct 32.6 L (42.0-52.0) % Plt Count 261 (130-400) K/uL BMP 06/12/24 06:34 Sodium 138 Potassium 4.0 Chloride 103 Carbon Dioxide 29 BUN 16 Creatinine 1.09 Glucose 130 H Calcium 9.0 Diagnostic Findings Lumbar Spine X-Ray 06/11/24 07:45 FL lumbar spine 2-3V CLINICAL HISTORY: T12-L2 DECOMPRESSION AND FUSION COMPARISON STUDY: None FLUOROSCOPY TIME: 16 seconds FLUOROSCOPY IMAGES: 2 EXPOSURE DOSE: 8 mGy FINDINGS: Fluoroscopy was provided for T12-L2 metallic fusion. IMPRESSION: Intraoperative fluoroscopy. ACT 112: Negative or not required by law. Electronically signed by: Rom Aldrich M.D. 06/11/2024 9:52 AM
[2024-06-12 07:38] LABS: BUN Creatinine Ratio 14.7 (10-20); Creatinine Clr Calc Pharmacy 63.8 ml/min
[2024-06-12] MEDS: dexAMETHasone 6 MG in SYRINGE 0 ML IV SCH (08:45)
[2024-06-12] MEDS: GABAPENTIN 300 MG CAP PO SCH (08:46)
[2024-06-12] MEDS: PANTOprazole 40 MG TAB PO SCH (08:46)
[2024-06-12] MEDS ORDERED: UMECLIDINIUM BROMIDE 62.5MCG/BLISTER 7 PUFFS/INHALER INH SCH (09:00)
[2024-06-12] MEDS ORDERED: FLUTICASONE/VILANTEROL 100/25MCG 14 PUFFS/INHALER INH SCH (09:00)
--- NOTE | 2024-06-12 10:05 | Orthopedic Progress Note ---
Date of Service June 12, 2024 Assessment & Plan (1) Two-level lumbosacral spondylosis with radiculopathy: Plan: At this time we will initiate physical therapy monitor his RANDI operatively discharge home in the next few days. Admission and Anticipated Discharge Date Admission Date: June 11, 2024 Subjective Back pain controlled leg pain improved Physical Exam Physical Exam: patient is good strength testing. Is comfortable. Results & Data Vital Signs (Past 12 Hours) Vital Signs Temp Pulse Pulse Resp BP BP Pulse Ox 06/12/24 07:52 36.6 C 87 18 136/80 94 06/12/24 04:32 36.7 C 82 18 103/59 L 95 06/11/24 23:59 36.6 C 75 16 108/64 95 O2 Del Method 06/12/24 07:52 Room Air 06/12/24 04:32 Room Air 06/11/24 23:59 Room Air
[2024-06-12 15:50] VITALS: O2SAT 94
[2024-06-13 06:02] LABS: Hematocrit (blood only) 35.7 % (42.0-52.0); Hemoglobin 12.1 g/dl (14.0-18.0); Mean Corpuscular Hemoglobin 30.9 pg (25.0-34.0); Mean Corpuscular Hgb Conc 33.9 g/dL (32.0-36.0); Mean Corpuscular Volume 91.3 fL (80.0-100.0); Platelet Count 281 K/uL (130-400); RDW Coefficient of Variation 12.8 % (11.5-14.5); RDW Standard Deviation 42.5 fL (36.4-46.3); Red Blood Count 3.91 M/uL (4.70-6.10); White Blood Count 14.19 K/ul (4.8-10.8)
[2024-06-13 06:18] LABS: BUN Creatinine Ratio 16.7 (10-20); Calcium 9.9 mg/dl (8.6-10.3); Potassium 4.2 mmol/L (3.5-5.1)
--- NOTE | 2024-06-13 08:19 | Hospitalist Progress Note ---
Date of Service June 13, 2024 Assessment & Plan (1) S/P spinal surgery: (2) Lumbar stenosis with neurogenic claudication: Plan: This is a 68yo F with a PMH of COPD, HLD, psoriasis who underwent removal of posterior instrumentation L2-L3, exploration of fusion L2-L3, lumbar decompression bilateral medial facetectomies and foraminotomies L1-L2 and posterior spinal fusion T12-L2 by Dr. Blue on 06/11/24. POD#2 s/p removal of posterior instrumentation L2-L3, exploration of fusion L2- L3, lumbar decompression bilateral medial facetectomies and foraminotomies L1-L2 and post spinal fusion T12-L2 by Dr. Blue. Per ortho for pain control, wound care, anticoagulation and activities Continue incentive spirometry, PT/OT when appropriate Post op blood loss anemia Hgb 12.1. Was 11.1 today. Improved. (pre-op hgb 13.2) Asymptomatic, no indication for transfusion Constipation No BM, passing flatus, No abdominal pain. Discussed bowel regimen Ordered Dulcolax suppository Suggest continuing stool softeners, twice daily Miralax until BM, then can use daily as needed (3) Psoriasis: Plan: Apremilast held by primary, continue clobetasol BID PRN (4) COPD (chronic obstructive pulmonary disease): Plan: Stable Continue Spiriva, Advair, Ventolin PRN (5) HLD (hyperlipidemia): Plan: Continue statin (6) GERD (gastroesophageal reflux disease): Plan: Continue omeprazole DVT Ppx: SCDs Code status: FULL PCP: Adelso Dispo: Planned for discharge home by primary service I spent a total of 35 minutes coordinating, documenting, and providing care for this patient excluding time spent in the performance of separately billed services or time spent by another provider/QHP. Thank you for this consultation. We will follow the patient with you during their hospital stay. You can reach a member of the [facility] Hospitalist Team 05/11 via [employer]. Admission and Anticipated Discharge Date Admission Date: June 11, 2024 Subjective Patient seen and examined in room 317-1. Sitting up in bedside chair playing game on phone. Reports is doing well and pain is controlled. Has not had BM in couple of days. Reports passing flatus. Denies abdominal pain, nausea or vomiting, fever/chills, ROBBINS, dizziness, CP, SOB, extremity weakness, extremity edema, rashes, urinary symptoms. Planned for discharge home today by ortho spine. Review of Systems Review of Systems: All systems reviewed & are unremarkable except as noted in HPI & below Physical Exam Physical Exam: General: no distress, WDWN Head: normocephalic, atraumatic Eyes: conjunctiva non-injected, anicteric ENT: normal inspection external ears, nose, mucous membranes moist Neck: supple, trachea midline, non-tender Lungs: clear, no respiratory distress, no wheezing/rhonchi/rales CV: RRR, no murmur, no pretibial edema Abd: normal BS, soft, non-tender Ext: no cyanosis, no calf tenderness, flexion and extension bilateral knees and ankles intact while sitting in bedside chair. sensation to light touch intact Neuro: A&O x 3, no focal deficits noted, normal affect Skin: warm, dry Results & Data Results & Data Laboratory Results Short CBC 06/13/24 Range/Units 05:34 WBC 14.19 H (4.8-10.8) K/ul Hgb 12.1 L (14.0-18.0) g/dl Hct 35.7 L (42.0-52.0) % Plt Count 281 (130-400) K/uL BMP 06/13/24 05:34 Sodium 136 Potassium 4.2 Chloride 101 Carbon Dioxide 29 BUN 20 Creatinine 1.20 Glucose 109 H Calcium 9.9
--- NOTE | 2024-06-13 08:23 | Discharge Summary ---
Date of Service June 13, 2024 Admission HPI Per Admitting Provider This is a 68-year-old male that presents for persistent back and leg pain over the course of nonoperative care is here for surgical invention. Principal Diagnosis Lumbar spondylosis with radiculopathy Discharge Data Allergies Allergy/AdvReac Type Severity Reaction Status Date / Time No Known Allergies Allergy Unknown Verified 06/11/24 06:40 Consultations 06/11/24 12:45 Consult Hospitalist Routine Procedures Performed Operation Date: 06/11/24 07:45 Actual Procedures p T12-L2 Decompression and Fusion, Spinal Cord Monitoring(Not Applicable) - Javed Blue DO Ordered Studies 06/11/24 07:45 FL lumbar spine 2-3V Routine Hospital Course (1) Two-level lumbosacral spondylosis with radiculopathy: Patient underwent lumbar decompression fusion trial as well as taken orthopedic for postoperative. Postop he progressed appropriate. Marked improvement of his leg pain. RANDI drain decreasing. Extra strength testing. Subsidy discharged home. Discharge orders instructions from the chart for further review. Total Time Total Time Spent Total Time Spent (In Minutes): 20 minutes Discharge Plan Discharge Items Patient Disposition: Home - Self-Care Reason For Visit: Other Spondylosis with Radiculopathy Lumbar Region Discharge Diagnosis: Lumbar spondylosis with radiculopathy Activity: As commented below Non-emergency contact: Primary Care Provider Call non-emergency contact if: you have any medication questions Follow-up/Referrals: Tiffanie Darden MD [Primary Care Provider] - Diet: Regular Addtl Attending Provider Instructions: ACTIVITY RECOMMENDATIONS: SELF CARE INSTRUCTIONS AFTER THORACIC/LUMBAR FUSIONS 1. You may walk to your tolerance. It is good exercise for your legs and back. Expect some back and intermittent leg aches and pains. 2. You may perform "counter-top" level activities (make a sandwich, rodolfo with a project, etc.). 3. No bending or lifting of more than 10 pounds or back twisting of any nature (roll like a log when turning in bed). 4. You may ride in a car for 20-30 minutes at a time. No driving until after your first visit with your doctor. 5. Frequent changes of position and restricting sitting to 30 minutes at a time will help limit the amount of back spasms and stiffness you may experience. 6. You may discontinue the use of ambulatory aids (cane, crutches, etc.) once your strength and confidence allow. 7. You may continuous improvement lead the shower and let water strike your incision when you arrive home at least once daily. Do not take a tub bath, sit in a hot tub or go into a swimming pool until after your first recheck in the office. 8. You may resume previous diet. SPECIAL CARE INSTRUCTIONS: VERY IMPORTANT TO READ AND REVIEW A. Your surgical incision has been closed with a cosmetic suture under the skin that will dissolve in about 6 weeks. In 14 days, you can use a pair of clean scissors and cut the suture that is left outside of the skin at the ends of your incision. 1. The small skin tapes can be removed 7 days after surgery if they have not fallen off by that point. 2. You may keep the wound open to air as much as possible to promote healing after post-op day number 5 unless told otherwise by your doctor. 3. If you think the wound looks like it is becoming infected (redness or worsening drainage) and/or you are experiencing fever, chill or worsening back pain and muscle spasms, contact the office so that we may evaluate you as soon as possible. B. Complications are uncommon, but please contact us if you have any signs or symptoms of: 1. wound infection (fever higher than 102.5 degrees F, redness, separation of wound, drainage, or increasing pain from the incision) 2. blood clots in legs (pain, swelling, redness and warmth in legs) 3. urinary tract infection (fever higher than 102.5 degrees F, burning upon urination or increased frequency of urination) 4. nerve problems (inability to walk on your toes or heels, numbness, loss of bowel or bladder control) 5. any other symptoms that concern you C. Please call the office at if you have any concerns or questions about your operation or recovery. D. No smoking! Smoking drastically decreases the chance of a solid fusion. E. Do not take any anti-inflammatory medications (Indocin, Advil, Motrin, Aspirin, Naprosyn, etc.) as these may inhibit the chance of a solid fusion. Tylenol is okay to take for pain. MANAGING PAIN AFTER SPINAL SURGERY 1. Narcotic medication is intended for short-term use and will be provided for surgical pain. Surgical pain usually lasts for a period of 4-6 weeks. Narcotic medication includes Percocet, Vicodin, Darvocet, Tylenol #3 or Lortab. 2. Longer-term pain is more appropriately treated with non-narcotic medication such as Tylenol ES. 3. Muscle spasm is not appropriately treated with narcotics. Muscle relaxers such as Soma, Flexeril or Skelaxin can be used along with Tylenol ES. 4. Remember that we all live with some "aches and pains". This is not unusual or uncommon after an injury or as we get older. a. Back pain is expected and may include muscle spasms for 4 to 6 weeks after surgery. The pain should gradually improve. If the pain worsens for no apparent reason, please contact the office. b. Intermittent leg pain may also be experienced and should not be concerned about unless it worsens for no apparent reason. If so, please contact the office. 5. We will provide appropriate medication within the normal guidelines of their prescribed use. We will also be very cautious and aware of potential abuse and extended duration of patients' medication needs. a. Pain medications are for your comfort and to assist with sleep and rest so that the tissue can heal. They are not provided in order to return to normal activity and should not be used through the day. To do so or worsening pain at night can result from ongoing tissue damage and development of tolerance to the prescribed medicine. 6. Please allow 2-3 days to process refills. Prescriptions will not be mailed but must be picked up at the office. FOLLOW UP VISIT: Keep your scheduled follow-up appointment. Any questions, please call the office at . Pending Studies at Discharge: No Stand-Alone Forms: [facility], Smoking Cessation Medications and DC Order Prescriptions: New tramadol 50 mg tablet 50 mg PO Q6H PRN (Reason: pain, moderate) Qty: 30 0RF oxycodone 5 mg tablet 5 mg PO Q6H PRN (Reason: pain) Qty: 30 0RF Continued omeprazole 40 mg Capsule,Delayed Release(Dr/Ec) 40 mg PO QAM acetaminophen 500 mg Tablet 1,000 mg PO QID PRN (Reason: Pain) gabapentin 300 mg capsule 300 mg PO UD Rx Instructions: 300 mg am, pm. 600 mg at hs albuterol sulfate 90 mcg/actuation HFA aerosol inhaler 2 puff INHALATION Q4H PRN (Reason: asthma) Otezla 30 mg tablet 30 mg PO BID fluticasone propion-salmeterol 250-50 mcg/dose blister with device See Rx Instructions .ROUTE .COMPLEX Rx Instructions: as directed by Spiriva Respimat 2.5 mcg/actuation mist See Rx Instructions .ROUTE .COMPLEX Rx Instructions: as needed Discharge Orders: Discharge Order (Routine); Ordered 06/13/24 Ordered By: Javed Blue Admission Data Admit Date/Time: 06/11/24 09:28 Attending Provider: Javed Blue Admit Provider: Javed Blue Primary Care Provider: Tiffanie Darden Other Providers: Graeme Rondon
[2024-06-13] MEDS: bisacodyL 10 MG SUPP PR STA (10:07)
[2024-06-13 13:21] VITALS: BP 136/77; PULSE 82; RESP 15; TEMP 98.1
== END 2024-06-13 13:45 | disposition home or self-care (01) | DRG 427 ==
LOC: ASU 05:48 → PACUINP 09:28 → 3E 12:46